=== PATIENT | male | born 1950 | race Caucasian/White ===

== ENCOUNTER → 2020-09-17 15:34 | Outpatient (BNVA) | payer MEDICARE, OTHER, MEDICAID, SELFPAY | PROVIDERS: Visit Provider Internal Medicine | DX: R06.02 Shortness of breath (principal); E78.5 Hyperlipidemia, unspecified | CPT/HCPCS: 80048; 80061; 85025 ==

== ENCOUNTER 2020-10-08 09:35 | Outpatient (CLI) | payer MEDICARE, OTHER, MEDICAID, SELFPAY ==
--- NOTE | 2020-10-08 12:45 | USCV_ITS ---
Charlie Moulton Age: 70 Gender: M : 1950 Exam Date: 10/08/2020 09:38 Ordering Phys: Gentry Renner M.D ([email or web address]) Technologist: Joselito Watkins Exam Location: [facility] [place] Indication: SOB BP: 140 / 80 HR: 56 Rhythm: Sinus Technical Quality: Adequate MEASUREMENTS (Male / Female) Normal Values 2D ECHO LV Diastolic Diameter PLAX 3.8 cm 4.2 - 5.9 / 3.9 - 5.3 cm LV Systolic Diameter PLAX 2.6 cm IVS Diastolic Thickness 1.6 cm 0.6 - 1.0 / 0.6 - 0.9 cm IVS Systolic Thickness 1.4 cm LVPW Diastolic Thickness 1.2 cm 0.6 - 1.0 / 0.6 - 0.9 cm LVPW Systolic Thickness 1.3 cm LVOT Diameter 3.8 cm LV Ejection Fraction 2D Teich 60.9 % LV Ejection Fraction MOD 2C 51.1 % LV Ejection Fraction 2C AL 51.7 % LA Diameter 3.5 cm LA Width 3.8 cm LA Height 4.5 cm RA Width 4.3 cm RA Height 4.2 cm Aorta at Sinotubular Diameter 3.4 cm M-MODE Aortic Annulus Diameter 4.1 cm LA Ao Ratio MM 0.8 MV E Point Septal Separation 0.9 cm DOPPLER AV Peak Velocity 114.0 cm/s LVOT Peak Velocity 89.0 cm/s AV Area Cont Eq vti 12.1 cm squared AV Area Cont Eq pk 8.6 cm squared MV Area PHT 4.0 cm squared Mitral E to A Ratio 1.4 MV E' Velocity 50.0 cm/s Mitral E to MV E' Ratio 10.0 Mitral E to LV E' Lateral Ratio 8.8 Mitral E to LV E' Septal Ratio 11.7 TR Peak Velocity 137.7 cm/s TR Peak Gradient 7.6 mmHg TV Peak E Velocity 94.0 cm/s Right Atrial Pressure 3.0 mmHg Pulmonary Artery Systolic Pressu 10.6 mmHg PV Peak Velocity 101.0 cm/s FINDINGS Left Ventricle Normal left ventricular size and systolic function, EF 55%. No regional wall motion abnormalities. Right Ventricle The right ventricle is normal in size and function. Right Atrium The right atrium is normal in size. Left Atrium The left atrium is normal in size. Mitral Valve Thickened mitral valve. Mild mitral annular calcification. Trace mitral valve regurgitation. Aortic Valve Thickened aortic valve. Tricuspid Valve No gross abnormalities noted Pulmonic Valve No pulmonic regurgitation. Pericardium Normal pericardium without effusion. Aorta Normal aortic annulus size. CONCLUSIONS Normal left ventricular size and systolic function, EF 55%. No regional wall motion abnormalities. Thickened mitral valve. Mild mitral annular calcification. Trace mitral valve regurgitation. Thickened aortic valve. Thickened mitral valve. Mild mitral annular calcification. Trace mitral valve regurgitation. There is no pericardial effusion. There are no intracardiac masses. Compared to the previous study from 09/10/2017, there may not be a significant Dr Karthik Palafox MD FACC (Electronically Signed) Final Date: 08 October 2020 17:40 S
== END 2020-10-08 09:36 | disposition home or self-care (01) ==
LOC: RAD 09:41
PROVIDERS: Visit Provider Internal Medicine
DX: R06.02 Shortness of breath (principal); I08.0 Rheumatic disorders of both mitral and aortic valves
CPT/HCPCS: 93306

== ENCOUNTER 2021-03-01 16:16 | Observation (INO) | payer MEDICARE, OTHER, MEDICAID, SELFPAY ==
[2021-03-01] VITALS (8 sets, daily range): BP systolic 109–131; BP diastolic 75–83; PULSE 73–92; RESP 17–29; TEMP 36.5–36.8; O2SAT 93–97; BMI 28.5
--- NOTE | 2021-03-01 16:19 | XRR_ITS ---
PROCEDURE INFORMATION: Exam: XR Chest Exam date and time: 03/01/2021 4:19 PM Age: 71 years old Clinical indication: Chest pain; Prior surgery; Surgery type: Hernia; Patient HX: Acid reflux, bloating, vomiting, heartburn every day; Additional info: Cp, gonzalez TECHNIQUE: Imaging protocol: XR of the chest Views: 1 view. COMPARISON: CR Chest 1 [place] [id number] 05/17/2017 6:34 AM FINDINGS: Lungs: Unremarkable. No consolidation. Pleural spaces: Unremarkable. No pleural effusion. No pneumothorax. Heart/Mediastinum: Unremarkable. No cardiomegaly. Bones/joints: Metallic hardware is seen in the cervical spine stable since prior XR/XR chest 1V portable [id number] IMPRESSION: 1. No acute findings. 2. Stable surgical hardware cervical spine.
--- NOTE | 2021-03-01 16:19 | ECG_ITS ---
[facility] Test Date: 2021-03-01 Pat Name: Charlie Moulton Department: Room: Gender: Male Spreader: : 1950 Requested By: Esly Delgado Order Number: [id number] Edgardo MD: Gentry Renner M.D. Measurements Intervals [place] Rate: 67 P: 69 ND: 192 QRS: 67 QRSD: 97 T: 74 QT: 369 QTc: 391 Interpretive Statements SINUS RHYTHM WITH MARKED SINUS ARRHYTHMIA Compared to ECG 05/17/2017 09:44:21 Incomplete right bundle-branch block no longer present T-wave abnormality no longer present Electronically Signed On 03-01-2021 18:29:59 CDT by Gentry Renner M.D. [id number]
--- NOTE | 2021-03-01 17:51 | ED_ITS ---
Documented by User: Sierra Head DO 03/02/21 06:45 HPI - Arrhythmia/Palpitations General: Chief Complaint: Arrhythmia/Palpitations Stated Complaint: NEW ONSET AFIB W/CP AND SOB Time Seen by Provider: 03/01/21 16:23 History of Present Illness: HPI narrative: This is a 71-year-old male who is complaining of some chest discomfort while he was doing some work around the house's in the center of his chest he denies it radiating but he had some shortness of breath associated with it he said it was pretty significant but will not put a number on it. He actually went in the house and sat down and felt very sweaty. He called his who came home who said she thought he looked pretty rough patient had taken some nitro that he had from some time ago Pt had ASA prior to arrival Review of Systems General: Reports: 10 or more systems reviewed and unremarkable except in HPI and below Narrative: General: denies fatigue, fever or chills HEENT: denies ear pain, denies nasal congestion, denies vision changes, denies sore throat Neck: denies masses or pain Resp: denies cough, ++ shortness of breath, denies pleuritic pain Cardio: see HPI, denies edema GI: denies abdominal pain, denies N/V/D, denies black/tarry or bloody stools : denies hematuria, denies dysuria Neuro: denies headache, denies dizziness, denies motor or sensory changes Musculoskeletal: denies pain, denies swelling Skin: denies rashes Psych: denies SI or HI Endocrine: denies thyroid symptoms, denies lymphadenopathy all over ROS reviewed and patient denies PFSH ED PFSH: Medical History (Updated 03/01/21 @ 20:51 by Jennifer Luther MD) Arthritis Neuropathy Surgical History H/O neck surgery History of hip surgery Previous back surgery Social History Smoking and tobacco status: current every day smoker Quit status (tobacco): has tried quititng Second hand smoke exposure: No Smoking risk assessment/counseling performed?: No Alcohol intake: former Desire information about alcohol rehabilitation?: No Counseling given: No Desire information about substance/drug rehabilitation?: No Counseling given: No Household members: spouse Housing: House Marital status: Highest education level completed: High School Graduate service: No Current occupational status: unemployed Pets and animals: Yes Physical Exam Narrative: EXAM NARRATIVE: General: a/o/3, no distress Head: atraumatic HEENT: normal eyes, normal conjunctiva, normal hearing, normal external nose, normal mouth, mucous membranes moist Neck: FROM, trachea midline Chest: normal expansion, no gross deformities Resp: normal speech, no retractions, no accessory muscle use, CTA bilaterally Cardio: regular rate and rhythm and no murmur, no peripheral edema, normal peripheral pulses GI: soft, flat non tender, no guarding normal BS : deferred Musculoskeletal: FROM, no pain or gross deformities Neuro: a/o appropriate for age, no gross motor or sensory deficitys, CN II-XII grossly intact, normal coordination, normal speech Skin: no rashes Psych: cooperative, normal mood and effect Course Vital Signs: Vital signs: Vital Signs Temperature 97.9 F 03/02/21 03:59 Pulse Rate 70 03/02/21 03:59 Respiratory Rate 17 03/02/21 03:59 Blood Pressure 117/69 03/02/21 03:59 Pulse Oximetry 91 03/02/21 03:59 MDM - Arrhythmia/Palpitations MDM Narrative: Medical decision making narrative: Reviewed patient's rhythm strips from EMS it appears he was in A. fib RVR but then converted spontaneously in route to the hospital he had aspirin prior to arrival he also had 1 nitro at home that he had on hand he is not sure if that helped or not but regardless if he converted or the nitro something made his pain resolved. Patient is a very suspicious story he had exertional chest pain diaphoresis pale when his arrived potentially relief with nitro this is his second or third complaint of this to medical staff in the past 6 months I feel patient needs cardiac evaluation [place] feel [place] him home Medical Records: Attestation: I reviewed the patient's medical records. Lab Data: Attestation: I reviewed the patient's lab results. Lab results narrative: Patient is pain-free in the emergency department I feel a story suspicious I reviewed his previous records patient's care was signed over to Dr. Prasad who will follow up on his chemistries his troponin and potential admission Labs: Lab Results 03/01/21 03/01/21 03/01/21 Range/Units 17:21 17:21 17:21 WBC 12.8 H (4.0-10.0) 10^3/ uL RBC 5.13 (4.1-5.3) 10^6/u L Hgb 15.8 (11.7-16.6) g/dL Hct 46.2 (42.0-52.0) % MCV 90.1 (80-94) fL MCH 30.8 (28.0-34.0) pg MCHC 34.2 (30.0-36.0) g/dL RDW 12.6 (12.1-15.1) % Plt Count 168 (130-400) 10^3/c mm MPV 9.9 (7.4-10.4) fL Neut % (Auto) 81.0 % Lymph % (Auto) 10.3 % [place] % (Auto) 7.7 % Eos % (Auto) 0.2 % Baso % (Auto) 0.3 % Neut # (Auto) 10.39 H (1.8-7.7) 10^3/u L Lymph # (Auto) 1.3 (0.8-4.8) 10^3/u L [place] # (Auto) 1.0 H (0.2-0.9) 10^3/u L Eos # (Auto) 0.0 (0.0-0.8) 10^3/u L Baso # (Auto) 0.0 (0.0-0.1) 10^3/u L Nucleated RBC % (a uto) 0 % Nucleated RBCs # 0.0 /100WBC D-Dimer (0-0.59) ug/mIFE U Sodium 141 (136-145) mmol/L Potassium 3.9 (3.5-5.1) mmol/L Chloride 104 (98-107) mmol/L Carbon Dioxide 22 (22-29) mmol/L Anion Gap 18.9 (5-19) BUN 23 (8-23) mg/dL Creatinine 1.0 (0.7-1.2) mg/dL GFR Calculation 74.1 L (90-130) mL/min Glucose 86 (65-115) mg/dL Calculated Osmolal ity 295 (285-295) mOsm/k g Calcium 9.8 (8.5-10.5) mg/dL Magnesium (1.7-2.3) mg/dL Total Bilirubin 0.5 (0.15-1.2) mg/dL AST 19 (0-40) U/L ALT 6 (0-41) U/L Alkaline Phosphata se 91 (40-130) IU/L Troponin T Baselin e 28 H (0-15) ng/L Total Protein 6.5 L (6.6-8.7) g/dL Albumin 4.9 (3.5-5.2) g/dL Globulin 1.6 (1.3-4.6) g/dL TSH (0.27-4.20) uIU/ mL 03/01/21 03/01/21 Range/Units 17:21 17:21 WBC (4.0-10.0) 10^3/ uL RBC (4.1-5.3) 10^6/u L Hgb (11.7-16.6) g/dL Hct (42.0-52.0) % MCV (80-94) fL MCH (28.0-34.0) pg MCHC (30.0-36.0) g/dL RDW (12.1-15.1) % Plt Count (130-400) 10^3/c mm MPV (7.4-10.4) fL Neut % (Auto) % Lymph % (Auto) % [place] % (Auto) % Eos % (Auto) % Baso % (Auto) % Neut # (Auto) (1.8-7.7) 10^3/u L Lymph # (Auto) (0.8-4.8) 10^3/u L [place] # (Auto) (0.2-0.9) 10^3/u L Eos # (Auto) (0.0-0.8) 10^3/u L Baso # (Auto) (0.0-0.1) 10^3/u L Nucleated RBC % (a uto) % Nucleated RBCs # /100WBC D-Dimer 0.43 (0-0.59) ug/mIFE U Sodium (136-145) mmol/L Potassium (3.5-5.1) mmol/L Chloride (98-107) mmol/L Carbon Dioxide (22-29) mmol/L Anion Gap (5-19) BUN (8-23) mg/dL Creatinine (0.7-1.2) mg/dL GFR Calculation (90-130) mL/min Glucose (65-115) mg/dL Calculated Osmolal ity (285-295) mOsm/k g Calcium (8.5-10.5) mg/dL Magnesium 2.1 (1.7-2.3) mg/dL Total Bilirubin (0.15-1.2) mg/dL AST (0-40) U/L ALT (0-41) U/L Alkaline Phosphata se (40-130) IU/L Troponin T Baselin e (0-15) ng/L Total Protein (6.6-8.7) g/dL Albumin (3.5-5.2) g/dL Globulin (1.3-4.6) g/dL TSH 0.84 (0.27-4.20) uIU/ mL EKG Data^: EKG 1: Attestation: I personally reviewed and interpreted this EKG as follows: EKG interpretation date: 03/01/21 EKG interpretation time: 18:21 Interpretation: nsr rate 67, No acute st changes or evaluation patient's rhythm strips were also interpreted from EMS and it does show A. fib RVR with a rate of about 1 18-1 20 Other EKG comments: Chest X-Ray 03/01/21 16:19 IMPRESSION: 1. No acute findings. 2. Stable surgical hardware cervical spine. EKG 2: Other EKG comments: Chest X-Ray 03/01/21 16:19 IMPRESSION: 1. No acute findings. 2. Stable surgical hardware cervical spine. 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 Documented by User: Contreras Perkins MD 03/01/21 19:46 HPI - Arrhythmia/Palpitations General: Chief Complaint: Arrhythmia/Palpitations Stated Complaint: NEW ONSET AFIB W/CP AND SOB Time Seen by Provider: 03/01/21 16:23 PFSH ED PFSH: Medical History (Updated 03/01/21 @ 20:51 by Jennifer Luther MD) Arthritis Neuropathy Surgical History H/O neck surgery History of hip surgery Previous back surgery Social History Smoking and tobacco status: current every day smoker Quit status (tobacco): has tried quititng Second hand smoke exposure: No Smoking risk assessment/counseling performed?: No Alcohol intake: former Desire information about alcohol rehabilitation?: No Counseling given: No Desire information about substance/drug rehabilitation?: No Counseling given: No Household members: spouse Housing: House Marital status: Highest education level completed: High School Graduate service: No Current occupational status: unemployed Pets and animals: Yes Course Vital Signs: Vital signs: Vital Signs Temperature 97.9 F 03/02/21 03:59 Pulse Rate 70 03/02/21 03:59 Respiratory Rate 17 03/02/21 03:59 Blood Pressure 117/69 03/02/21 03:59 Pulse Oximetry 91 03/02/21 03:59 MDM - Arrhythmia/Palpitations MDM Narrative: Medical decision making narrative: Patient presents with an episode of chest pain at home could be due to paroxysmal A. fib versus coronary artery disease. First troponin mildly elevated. He has converted his A. fib here. Spoke to hospitalist will admit. Has been pain-free here in the ER. Lab Data: Labs: Lab Results 03/01/21 03/01/21 03/01/21 Range/Units 17:21 17:21 17:21 WBC 12.8 H (4.0-10.0) 10^3/ uL RBC 5.13 (4.1-5.3) 10^6/u L Hgb 15.8 (11.7-16.6) g/dL Hct 46.2 (42.0-52.0) % MCV 90.1 (80-94) fL MCH 30.8 (28.0-34.0) pg MCHC 34.2 (30.0-36.0) g/dL RDW 12.6 (12.1-15.1) % Plt Count 168 (130-400) 10^3/c mm MPV 9.9 (7.4-10.4) fL Neut % (Auto) 81.0 % Lymph % (Auto) 10.3 % [place] % (Auto) 7.7 % Eos % (Auto) 0.2 % Baso % (Auto) 0.3 % Neut # (Auto) 10.39 H (1.8-7.7) 10^3/u L Lymph # (Auto) 1.3 (0.8-4.8) 10^3/u L [place] # (Auto) 1.0 H (0.2-0.9) 10^3/u L Eos # (Auto) 0.0 (0.0-0.8) 10^3/u L Baso # (Auto) 0.0 (0.0-0.1) 10^3/u L Nucleated RBC % (a uto) 0 % Nucleated RBCs # 0.0 /100WBC D-Dimer (0-0.59) ug/mIFE U Sodium 141 (136-145) mmol/L Potassium 3.9 (3.5-5.1) mmol/L Chloride 104 (98-107) mmol/L Carbon Dioxide 22 (22-29) mmol/L Anion Gap 18.9 (5-19) BUN 23 (8-23) mg/dL Creatinine 1.0 (0.7-1.2) mg/dL GFR Calculation 74.1 L (90-130) mL/min Glucose 86 (65-115) mg/dL Calculated Osmolal ity 295 (285-295) mOsm/k g Calcium 9.8 (8.5-10.5) mg/dL Magnesium (1.7-2.3) mg/dL Total Bilirubin 0.5 (0.15-1.2) mg/dL AST 19 (0-40) U/L ALT 6 (0-41) U/L Alkaline Phosphata se 91 (40-130) IU/L Troponin T Baselin e 28 H (0-15) ng/L Total Protein 6.5 L (6.6-8.7) g/dL Albumin 4.9 (3.5-5.2) g/dL Globulin 1.6 (1.3-4.6) g/dL TSH (0.27-4.20) uIU/ mL 03/01/21 03/01/21 Range/Units 17:21 17:21 WBC (4.0-10.0) 10^3/ uL RBC (4.1-5.3) 10^6/u L Hgb (11.7-16.6) g/dL Hct (42.0-52.0) % MCV (80-94) fL MCH (28.0-34.0) pg MCHC (30.0-36.0) g/dL RDW (12.1-15.1) % Plt Count (130-400) 10^3/c mm MPV (7.4-10.4) fL Neut % (Auto) % Lymph % (Auto) % [place] % (Auto) % Eos % (Auto) % Baso % (Auto) % Neut # (Auto) (1.8-7.7) 10^3/u L Lymph # (Auto) (0.8-4.8) 10^3/u L [place] # (Auto) (0.2-0.9) 10^3/u L Eos # (Auto) (0.0-0.8) 10^3/u L Baso # (Auto) (0.0-0.1) 10^3/u L Nucleated RBC % (a uto) % Nucleated RBCs # /100WBC D-Dimer 0.43 (0-0.59) ug/mIFE U Sodium (136-145) mmol/L Potassium (3.5-5.1) mmol/L Chloride (98-107) mmol/L Carbon Dioxide (22-29) mmol/L Anion Gap (5-19) BUN (8-23) mg/dL Creatinine (0.7-1.2) mg/dL GFR Calculation (90-130) mL/min Glucose (65-115) mg/dL Calculated Osmolal ity (285-295) mOsm/k g Calcium (8.5-10.5) mg/dL Magnesium 2.1 (1.7-2.3) mg/dL Total Bilirubin (0.15-1.2) mg/dL AST (0-40) U/L ALT (0-41) U/L Alkaline Phosphata se (40-130) IU/L Troponin T Baselin e (0-15) ng/L Total Protein (6.6-8.7) g/dL Albumin (3.5-5.2) g/dL Globulin (1.3-4.6) g/dL TSH 0.84 (0.27-4.20) uIU/ mL EKG Data^: EKG 1: Other EKG comments: Chest X-Ray 03/01/21 16:19 IMPRESSION: 1. No acute findings. 2. Stable surgical hardware cervical spine. EKG 2: Attestation: I personally reviewed and interpreted this EKG as follows: EKG interpretation date: 03/01/21 EKG interpretation time: 18:39 Interpretation: nsr hr [address] or t wave eanbormalities qrs 93 qtc 397 Other EKG comments: Chest X-Ray 03/01/21 16:19 IMPRESSION: 1. No acute findings. 2. Stable surgical hardware cervical spine. 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
[2021-03-01 17:54] LABS: Basophils % 0.3 %; Eosinophils % 0.2 %; Hematocrit 46.2 % (42.0-52.0); Hemoglobin 15.8 g/dL (11.7-16.6); Lymphocytes # 1.3 10^3/uL (0.8-4.8); Lymphocytes % 10.3 %; Mean Corpuscular HGB Conc 34.2 g/dL (30.0-36.0); Mean Corpuscular Hemoglobin 30.8 pg (28.0-34.0); Mean Corpuscular Volume 90.1 fL (80-94); Mean Platelet Volume 9.9 fL (7.4-10.4); Monocytes % 7.7 %; Neutrophils # 10.39 10^3/uL (1.8-7.7); Nucleated Red Blood Cells % 0 %; Platelet Count 168 10^3/cmm (130-400); Red Blood Count 5.13 10^6/uL (4.1-5.3); Red Cell Distribution Width 12.6 % (12.1-15.1); White Blood Count 12.8 10^3/uL (4.0-10.0)
--- NOTE | 2021-03-01 18:19 | ECG_ITS ---
[facility] Test Date: 2021-03-01 Pat Name: Charlie Moulton Department: Room: Gender: Male Abe Teacher: : 1950 Requested By: Elsy Delgado Order Number: [id number] Edgardo MD: Gentry Renner M.D. Measurements Intervals [place] Rate: 64 P: 76 [place]: 194 QRS: 64 QRSD: 93 T: 69 QT: 388 QTc: 401 Interpretive Statements SINUS RHYTHM WITH SINUS ARRHYTHMIA Compared to ECG 03/01/2021 16:29:22 No significant changes Electronically Signed On 03-01-2021 18:43:04 CDT by Gentry Renner M.D. [id number]
[2021-03-01 18:36] LABS: Alanine Aminotransferase 6 U/L (0-41); Albumin Level 4.9 g/dL (3.5-5.2); Alkaline Phosphatase 91 IU/L (40-130); Anion Gap 18.9 (5-19); Aspartate Amino Transferase 19 U/L (0-40); Blood Urea Nitrogen 23 mg/dL (8-23); Calcium 9.8 mg/dL (8.5-10.5); Carbon Dioxide 22 mmol/L (22-29); Chloride 104 mmol/L (98-107); Globulin 1.6 g/dL (1.3-4.6); Glomerular Filtration Rate 74.1 mL/min (90-130); Glucose 86 mg/dL (65-115); Osmolality Calculated 295 mOsm/kg (285-295); Potassium 3.9 mmol/L (3.5-5.1); Sodium 141 mmol/L (136-145); Total Bilirubin 0.5 mg/dL (0.15-1.2); Total Protein 6.5 g/dL (6.6-8.7)
[2021-03-01 18:39] LABS: Troponin(5th) Baseline 28 ng/L (0-15)
--- NOTE | 2021-03-01 19:32 | P.HP_ITS ---
Providers/Chief Complaint Admitting Physician: Jennifer Luther MD Chief Complaint: NEW ONSET AFIB W/CP AND SOB History of Present Illness Charlie Moulton is a 71 year old male who does not have any significant past medical history presented today with chief complaint of right-sided chest discomfort. Patient was doing some work in his house when he started experiencing right-sided chest discomfort, the nature of his work involves uziel ping his arm above his shoulder level, he started experiencing right-sided chest discomfort around 2 PM which he is describing as achy, it lasted for about an hour, initially he attributed his symptoms to acid reflux but since morning he did not eat any food, after a while he broke into sweat and started experiencing shortness of breath, he called his who came from work and gave him sublingual nitroglycerin, it seemed to resolve his symptoms, he also felt weakness in his legs and he laid on the ground he did not experience any syncopal events or seizure-like activities. Is denying previous history of HI, CHF, diabetes, hypertension. He smokes half a pack a day for last 50 years. He considers himself very active for his age. EMS noticed A. fib RVR heart rate 120s which converted to sinus rhythm spontaneously, he received a loading dose of aspirin, by the time he was evaluated in the ER he was in sinus rhythm with normal hemodynamics troponin 2 8, EKG showing sinus rhythm, previous echo which was done on 10/19 did not show left atrial argument, preserved ejection fraction. Requested D-dimer which is unremarkable Review of Systems Const: Denies: fever(s) Eyes: Denies: change in vision ENMT: Denies: throat pain Card: Reports: chest pain and pre-syncope; Denies: syncope, dyspnea on exertion or orthopnea Resp: Reports: dyspnea and pain on inspiration; Denies: productive cough or non-productive cough GI: Denies: abdominal pain : Denies: flank pain Musc: Denies: neck pain Skin/Breast: Denies: rash Neuro: Denies: headache(s) Psych: Denies: anxiety Endo: Denies: polyuria Miguelito/Lymph: Denies: easy bruising All/Imm: Denies: urticaria Medications/Allergies Home Medications Medication Instructions Recorded Confirmed Last Taken Type Equate Nasal Congestion Mist 2 spray NOSTRIL-B BEDTIME 03/01/21 03/01/2102/28/21 History Ventolin HFA 2 inh INHALATION QID PRN 03/01/21 03/01/21 Unknown History fluticasone propionate [Flonase] 1 - 2 spray INTRANASAL DAILY PRN 03/01/21 03/01/21 Unknown History gabapentin 300 mg PO BID PRN 03/01/21 03/01/21 Unknown History naproxen 500 mg PO DAILY 03/01/21 03/01/21 02/28/21 History prednisolone acetate 1 drp OPHTHALMIC (EYE) BID 03/01/21 03/01/21 03/01/21 History tadalafil 20 mg PO PRN 03/01/21 03/01/21 Unknown History vit C,G-Px-fluse-lutein-zeaxan 1 cap PO QPM 03/01/21 03/01/21 02/28/21 History [PreserVision AREDS-2] Allergies Allergy/AdvReac Type Severity Reaction Status Date / Time No Known Allergies Allergy Verified 03/01/21 16:52 PFSH Acute PFSH: Medical History Neuropathy Surgical History H/O neck surgery History of hip surgery Previous back surgery Social History Smoking and tobacco status: current every day smoker Quit status (tobacco): has tried quititng Second hand smoke exposure: No Smoking risk assessment/counseling performed?: No Alcohol intake: former Desire information about alcohol rehabilitation?: No Counseling given: No Desire information about substance/drug rehabilitation?: No Counseling given: No Household members: spouse Housing: House Marital status: Highest education level completed: High School Graduate service: No Current occupational status: unemployed Pets and animals: Yes Vitals/I&O/Wt Last Vital Signs Temp 97.7 F 03/01/21 16:24 Pulse 92 03/01/21 17:24 Resp 18 03/01/21 17:24 BP 109/75 03/01/21 17:24 Pulse Ox 97 03/01/21 17:24 Weight last 48 hrs Weight 95.254 kg Physical Exam Narrative: EXAM NARRATIVE: elderly male who was sitting comfortably in his bed when I entered the room was saturating well on room air Very pleasant and cooperative S1, S2 no murmur appreciated, No signs of heart failure Bilateral breath sounds without adventitious rhonchi or crackles however diminished breath sounds Abdomen soft nontender No neurological deficit EOMI, PERRLA GCS 15 No lower extremity edema gangrene or ulcer No acute respiratory distress Data : 03/01/21 17:21 03/01/21 17:21 A&P Assessment and plan (1) Unstable angina: Status: Acute (2) Tobacco abuse: Status: Acute (3) Paroxysmal A-fib: Status: Acute Additional A&P Information Unstable angina Patient risk factors include smoking, age, sex He does not carry any diagnosis of hypertension diabetes HI CHF EMS strip showed A. 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 fib Spontaneous converted to normal sinus rhythm [id number] score 1 for his age no carry history of diabetes hypertension congestive heart failure Currently in sinus rhythm I would not add any anticoagulating agent or AV jose blocking agent for now, he never had this kind of symptoms before would recommend outpatient follow-up with cardiology, he is not septic less likely to have PE because of low D-dimer, no ACS, no history of hypertension, chest x-ray does show emphysematous changes Cardiac diet DVT prophylaxis Lovenox Full code Attestations Medical Necessity Statement*: Anticipating discharge in less than 48 hours: Angina equivalent chest discomfort, paroxysmal A. fib, need overnight telemetry monitoring Time Spent in Patient Care: (>than 50% of time spent in counselling and/or direct pt care on unit) . 40mins Coding Level of Care Code Acute Attendant Self Service Store for Chg Fwd Diagnoses Unstable angina I20.0 Tobacco abuse Z72.0 Paroxysmal A-fib I48.0
[2021-03-01] MEDS: aspirin 81 mg Chew Tablet 324 MG PO (19:39)
[2021-03-01 19:45] LABS: Lactate (Lactic Acid level) 1.1 mmol/L (0.5-2.2)
--- NOTE | 2021-03-01 19:50 | PC.NURSE ---
Attempted to call report to CSU and no answer at this time.
[2021-03-01 19:53] LABS: D Dimer 0.43 ug/mIFEU (0-0.59)
[2021-03-01 19:58] LABS: Magnesium 2.1 mg/dL (1.7-2.3); Thyroid Stimulating Hormone 0.84 uIU/mL (0.27-4.20)
[2021-03-01] MEDS: enoxaparin 40 mg/0.4 mL Syringe SUBCUT (22:24)
--- NOTE | 2021-03-01 22:26 | PC.NURSE ---
Lovenox injection given late, due to care of other patients.
[2021-03-02] VITALS (7 sets, daily range): BP systolic 93–128; BP diastolic 57–74; PULSE 66–76; RESP 14–20; TEMP 36.4–36.9; O2SAT 91–96
[2021-03-02 00:30] LABS: Troponin 5 6HR 27.48 ng/L (0-15)
[2021-03-02 00:46] LABS: Troponin 5 6HR Delta -0.52 ng/L (0-12)
[2021-03-02 04:04] LABS: Basophils % 0.6 %; Eosinophils # 0.1 10^3/uL (0.0-0.8); Hematocrit 43.2 % (42.0-52.0); Hemoglobin 14.4 g/dL (11.7-16.6); Lymphocytes % 29.5 %; Mean Corpuscular HGB Conc 33.3 g/dL (30.0-36.0); Mean Corpuscular Hemoglobin 30.6 pg (28.0-34.0); Mean Corpuscular Volume 91.9 fL (80-94); Mean Platelet Volume 9.9 fL (7.4-10.4); Monocytes # 0.6 10^3/uL (0.2-0.9); Monocytes % 9.5 %; Neutrophils # 3.89 10^3/uL (1.8-7.7); Neutrophils % 58.4 %; Nucleated Red Blood Cells % 0 %; Platelet Count 156 10^3/cmm (130-400); Red Cell Distribution Width 12.9 % (12.1-15.1); White Blood Count 6.7 10^3/uL (4.0-10.0)
--- NOTE | 2021-03-02 10:14 | USCV_ITS ---
Charlie Moulton Age: 71 Gender: M : 1950 Exam Date: 03/02/2021 11:23 Ordering Phys: Marvin Owens MD Technologist: Adriane Shrestha Exam Location: [facility] – [place] Indication: chest pain BP: 128 / 73 HR: 58 Rhythm: Sinus Technical Quality: Adequate MEASUREMENTS (Male / Female) Normal Values 2D ECHO LV Diastolic Diameter PLAX 3.4 cm 4.2 - 5.9 / 3.9 - 5.3 cm LV Systolic Diameter PLAX 2.2 cm IVS Diastolic Thickness 1.8 cm 0.6 - 1.0 / 0.6 - 0.9 cm IVS Systolic Thickness 2.0 cm LVPW Diastolic Thickness 1.6 cm 0.6 - 1.0 / 0.6 - 0.9 cm LVPW Systolic Thickness 2.0 cm RV Chamber Size 2.6 cm LVOT Diameter 2.0 cm LV Ejection Fraction 2D Teich 65.5 % LV Ejection Fraction MOD 2C 63.5 % LV Ejection Fraction 2C AL 65.9 % LA Diameter 3.3 cm LA Width 3.5 cm LA Height 3.6 cm RA Width 3.0 cm RA Height 3.8 cm Aorta at Sinotubular Diameter 2.9 cm M-MODE LV Diastolic Diameter MM 6.1 cm 4.2 - 5.9 / 3.9 - 5.3 cm LV Systolic Diameter MM 3.9 cm LV Ejection Fraction MM Teich 64.6 % IVS Diastolic Thickness MM 1.5 cm 0.6 - 1.0 / 0.6 - 0.9 cm IVS Systolic Thickness MM 1.9 cm LVPW Diastolic Thickness MM 1.9 cm 0.6 - 1.0 / 0.6 - 0.9 cm LVPW Systolic Thickness MM 2.2 cm Aortic Annulus Diameter 3.4 cm LA Ao Ratio MM 1.1 MV E Point Septal Separation 0.8 cm DOPPLER AV Peak Velocity 120.0 cm/s LVOT Peak Velocity 90.0 cm/s AV Area Cont Eq vti 2.4 cm squared AV Area Cont Eq pk 2.5 cm squared MV Area PHT 5.0 cm squared Mitral E to A Ratio 1.0 MV E' Velocity 43.5 cm/s Mitral E to MV E' Ratio 9.8 Mitral E to LV E' Lateral Ratio 9.9 Mitral E to LV E' Septal Ratio 9.7 TR Peak Velocity 218.0 cm/s TR Peak Gradient 19.0 mmHg Right Atrial Pressure 3.0 mmHg Pulmonary Artery Systolic Pressu 22.0 mmHg PV Peak Velocity 96.0 cm/s RV Acceleration Time 0.1 s RV Ejection Time 0.3 s RV AcT/ET 0.4 FINDINGS Left Ventricle Normal left ventricular size and systolic function, EF 64 %. Moderate left ventricular hypertrophy. No regional wall motion abnormalities. Right Ventricle The right ventricle is normal in size and function. Right Atrium The right atrium is normal in size. Left Atrium The left atrium is normal in size. Mitral Valve Thickened mitral valve. Mild mitral annular calcification. Trace mitral valve regurgitation. Aortic Valve Thickened aortic valve. Tricuspid Valve No gross abnormalities noted Pulmonic Valve No gross abnormalities noted Pericardium Normal pericardium without effusion. Aorta Normal ascending aorta dimension. CONCLUSIONS Normal left ventricular size and systolic function, EF 64 %. Moderate left ventricular hypertrophy. No regional wall motion abnormalities. Thickened mitral valve. Mild mitral annular calcification. Trace mitral valve regurgitation. Thickened aortic valve. There is no pericardial effusion. There are no intracardiac masses. Compared to the study from 10/08/2020, there may not be a significant change Dr Karthik Palafox MD [facility] (Electronically Signed) Final Date: 02 March 2021 13:36 S
[2021-03-02] MEDS: prednisoLONE 1% Op Susp 5 mL Btl 1 DROP EYE-LEFT (13:48)
--- NOTE | 2021-03-02 13:54 | P.DS_ITS ---
Discharge Providers Date of Admission: 03/01/21 19:08 Date of Discharge: March 02, 2021 Attending Provider at Admission: Jennifer Luther MD Attending Provider at Discharge: Marvin Owens MD Diagnoses at Discharge Discharge Diagnosis (1) Chest pain: Status: Acute (2) Tobacco abuse: Status: Acute Reason for Visit Reason for Visit: NEW ONSET AFIB W/CP AND SOB Hospital Course Hospital Course 71 year old male with past medical history of chronic smoking, was admitted with chief complaint of right-sided chest discomfort. Patient was doing some work in his house when he started experiencing right-sided chest discomfort, the nature of his work involves keeping his arm above his shoulder level, he started experiencing right-sided chest discomfort around 2 PM which he is describing as achy, it lasted for about an hour, initially he attributed his symptoms to acid reflux but since morning he did not eat any food, after a while he broke into sweat and started experiencing shortness of breath, he called his who came from work and gave him sublingual nitroglycerin, it seemed to resolve his symptoms, he also felt weakness in his legs and he laid on the ground he did not experience any syncopal events or seizure-like activities. On his way to the hospital EMS noticed A. fib RVR heart rate 120s which converted to sinus rhythm spontaneously, he received a loading dose of aspirin, by the time he was evaluated in the ER he was in sinus rhythm with normal hemodynamics troponin EKG showing sinus rhythm, previous echo which was done on 10/19 did not show left atrial argument, preserved ejection fraction. D-dimer which is unremarkable. He was admitted for the management and work-up of chest. During the hospital stay he denied any similar episode, telemetry failed to show any abnormality, he remained in sinus during the hospital, no episode of A. fib was noted. Repeat 2D echo done: Normal left ventricular size and systolic function, EF 64 %. Moderate left ventricular hypertrophy.No regional wall motion abnormalities. Thickened mitral valve. Mild mitral annular calcification. Trace mitral valve regurgitation. Thickened aortic valve.Patient was advised to stay in the hospital for further work-up including and not limited to possible stress test.But patient was willing to go home. 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 Possible explanation no chest pain likely musculoskeletal versus possible underlying coronary artery disease. Physical Exam Const: COMMON NORMALS: patient oriented x3 HENMT: COMMON NORMALS: normocephalic and atraumatic HEAD & SCALP: normocephalic and atraumatic Chest: CHEST: Yes Symmetrical chest wall rise Resp: COMMON NORMALS: clear to auscultation bilaterally EFFORT & INSPECTION: Yes symmetric chest movement AUSCULTATION: clear to auscultation bilaterally Cardio: COMMON NORMALS: regular rate, regular rhythm, S1 normal heart sound present, S2 normal heart sound present, No gallops present (Cardio), No murmurs present (Cardio), No rub (Cardio) and Peripheral pulses 2+ throughout RATE: regular rate RHYTHM: regular rhythm HEART SOUNDS: S1 normal heart sound present and S2 normal heart sound present PERIPHERAL PULSES: Peripheral pulses 2+ throughout GI: COMMON NORMALS: Normal to inspection, nondistended, normoactive bowel sounds present, Soft to palpation, non-tender, No hepatosplenomegaly present and no masses AUSCULTATION: Yes normoactive bowel sounds PALPATION: Yes Soft to palpation and Yes No hepatosplenomegaly present RECTAL EXAM: Yes deferred Extremity: COMMON NORMALS: no clubbing, cyanosis or edema and no pedal edema Neuro: COMMON NORMALS: patient oriented x3 Discharge Data Data Completed and Pending: Completed Studies During Hospitalization Category Date Time Status XR chest 1V rachelle ble [id number] Stat Exams 03/01/21 16:19 Completed CV echo complete* [id number] Stat Ultrasound 03/02/21 10:14 Completed Labs from last 24 hours 03/02/21 03/01/21 03/01/21 03:33 23:42 19:21 WBC 6.7 RBC 4.70 Hgb 14.4 Hct 43.2 MCV 91.9 MCH 30.6 MCHC 33.3 RDW 12.9 Plt Count 156 MPV 9.9 Neut % (Auto) 58.4 Lymph % (Auto) 29.5 [place] % (Auto) 9.5 Eos % (Auto) 2.0 Baso % (Auto) 0.6 Neut # (Auto) 3.89 Lymph # (Auto) 2.0 [place] # (Auto) 0.6 Eos # (Auto) 0.1 Baso # (Auto) 0.0 Nucleated RBC % (a uto) 0 Nucleated RBCs # 0.0 D-Dimer Sodium Potassium Chloride Carbon Dioxide Anion Gap BUN Creatinine GFR Calculation Glucose Calculated Osmolal ity Lactate Calcium Magnesium Total Bilirubin AST ALT Alkaline Phosphata se Troponin T Baselin e Troponin T 120 Min [place] 32.10 H Delta Troponin T 4.10 Troponin T Hi Sens 6Hr 27.48 H Troponin T Hi Sens 6Hr Delta -0.52 L Total Protein Albumin Globulin TSH 03/01/21 03/01/21 03/01/21 19:21 17:21 17:21 WBC RBC Hgb Hct MCV MCH MCHC RDW Plt Count MPV Neut % (Auto) Lymph % (Auto) [place] % (Auto) Eos % (Auto) Baso % (Auto) Neut # (Auto) Lymph # (Auto) [place] # (Auto) Eos # (Auto) Baso # (Auto) Nucleated RBC % (a uto) Nucleated RBCs # D-Dimer 0.43 Sodium Potassium Chloride Carbon Dioxide Anion Gap BUN Creatinine GFR Calculation Glucose Calculated Osmolal ity Lactate 1.1 Calcium Magnesium 2.1 Total Bilirubin AST ALT Alkaline Phosphata se Troponin T Baselin e Troponin T 120 Min [place] Delta Troponin T Troponin T Hi Sens 6Hr Troponin T Hi Sens 6Hr Delta Total Protein Albumin Globulin TSH 0.84 03/01/21 03/01/21 03/01/21 17:21 17:21 17:21 WBC 12.8 H RBC 5.13 Hgb 15.8 Hct 46.2 MCV 90.1 MCH 30.8 MCHC 34.2 RDW 12.6 Plt Count 168 MPV 9.9 Neut % (Auto) 81.0 Lymph % (Auto) 10.3 [place] % (Auto) 7.7 Eos % (Auto) 0.2 Baso % (Auto) 0.3 Neut # (Auto) 10.39 H Lymph # (Auto) 1.3 [place] # (Auto) 1.0 H Eos # (Auto) 0.0 Baso # (Auto) 0.0 Nucleated RBC % (a uto) 0 Nucleated RBCs # 0.0 D-Dimer Sodium 141 Potassium 3.9 Chloride 104 Carbon Dioxide 22 Anion Gap 18.9 BUN 23 Creatinine 1.0 GFR Calculation 74.1 L Glucose 86 Calculated Osmolal ity 295 Lactate Calcium 9.8 Magnesium Total Bilirubin 0.5 AST 19 ALT 6 Alkaline Phosphata se 91 Troponin T Baselin e 28 H Troponin T 120 Min [place] Delta Troponin T Troponin T Hi Sens 6Hr Troponin T Hi Sens 6Hr Delta Total Protein 6.5 L Albumin 4.9 Globulin 1.6 TSH Vitals: Last Vital Signs Temp 98.5 F 03/02/21 11:03 Pulse 68 03/02/21 11:03 Resp 18 03/02/21 11:03 BP 128/73 03/02/21 11:03 Pulse Ox 93 03/02/21 11:03 Discharge Plan Discharge Patient Disposition: Home Condition: Stable Prescriptions: New nitroglycerin 0.4 mg tablet, sublingual 0.4 mg sublingual Q5M PRN (Reason: chest pain) Qty: 30 RF: 0 Continued prednisolone acetate 1 % drops,suspension 1 drp ophthalmic (eye) BID RF: 0 fluticasone propionate 50 mcg/actuation [place],Suspension 1 - 2 spray INTRANASAL DAILY PRN (Reason: Allergy Symptoms) RF: 0 tadalafil 20 mg tablet 20 mg PO PRN RF: 0 PreserVision AREDS-2 250-90-40-1 mg Capsule 1 cap PO QPM RF: 0 Equate Nasal Congestion Mist 2 spray NOSTRIL-B BEDTIME RF: 0 gabapentin 300 mg capsule 300 mg PO BID PRN (Reason: unknown) RF: 0 Ventolin HFA 90 mcg/actuation HFA aerosol inhaler 2 inh INHALATION QID PRN (Reason: shortness of breath or wheezing) RF: 0 naproxen 500 mg tablet 500 mg PO DAILY RF: 0 Discharge Orders: Discharge Order (Routine); Ordered 03/02/21 Ordered By: Marvin Owens Referrals: Karthik Palafox MD [Physician] - 1 month ([facility] will contact you to to schedule an follow-up with Dr. Palafox in 1 month. If you haven't heard from them by Thursday. Please call ) Discharge Diet: Regular Discharge Activity: Increase activity as tolerated Patient Instructions: Nitroglycerin (By mouth), Angina (DC), Chest Pain Stoplight Activity Restrictions/Additional Instructions: Please check your blood pressure when you are laying down, sitting and standing 3 mins apart twice a day. 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 Do not take ntiroglycerine for 24 hours when you have taken sildenafil it will cause low BP. Follow- up with your primary doctor and electric motor repairing supervisor. Discharge Attestations Time Spent in Discharge Care*: greater than 30 min Specific Discharge Activities: educating patient, educating and/or supporting family/caregiver, discussing with pcp/other providers, discussing with watch case polisher/social workers/dc planners, documenting/other paperwork and evaluating patient/reviewing data Status at Discharge: Cognitive status at discharge: cognitively intact , Behavioral status at discharge: cooperative , Functional status at discharge: independent ambulation Overall status at discharge: patient is back to baseline Quality Metrics Clinical Quality Measures During this hospital stay, did patient experience: None Coding Level of Care Code Acute Chg FW DC note Diagnoses Chest pain R07.9 Tobacco abuse Z72.0
--- NOTE | 2021-03-02 14:00 | PC.NURSE ---
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 Informed pt on his new medication dosing, intruction, possible side effects. Instructed pt to check his bp whn he is laying down, standing and sitting up and to keep a log of them to present to his doctors during his appointments. Pt verbalizes understanding. Discharge packet provided to pt.
--- NOTE | 2021-03-04 16:23 | PC.RESP ---
Smoking Cessation information sent to patient.
== END 2021-03-02 14:38 | disposition home or self-care (01) ==
LOC: ER 18:37 → CSU 19:31
PROVIDERS: Nurse Practitioner Family; Admitting Provider Internal Medicine; Emergency Provider Emergency Medicine; Visit Provider Internal Medicine
DX: I20.0 Unstable angina (principal); R07.9 Chest pain, unspecified; F17.210 Nicotine dependence, cigarettes, uncomplicated; I48.0 Paroxysmal atrial fibrillation
CPT/HCPCS: 36415; 71045; 80053; 83605; 83735; 84443; 84484; 85025; 85378; 93005; 93306; 96372; 99285; G0378; J1650

== ENCOUNTER → 2021-03-13 09:39 | Outpatient (BNVA) | payer MEDICARE, OTHER, MEDICAID, SELFPAY | PROVIDERS: PCP Family Medicine; Visit Provider Internal Medicine | DX: R06.02 Shortness of breath (principal); R07.9 Chest pain, unspecified; Z20.822 Contact with and (suspected) exposure to COVID-19 | CPT/HCPCS: 87635 ==

== ENCOUNTER → 2021-07-03 10:50 | Outpatient (BNVA) | payer MEDICARE, OTHER, MEDICAID, SELFPAY | PROVIDERS: PCP Family Medicine | DX: Z20.822 Contact with and (suspected) exposure to COVID-19 (principal); J44.9 Chronic obstructive pulmonary disease, unspecified | CPT/HCPCS: 87635 ==

== ENCOUNTER 2021-07-09 09:06 | Outpatient (CLI) | payer MEDICARE, OTHER, MEDICAID, SELFPAY ==
--- NOTE | 2021-07-09 09:30 | CT_ITS ---
WS: [id number] LDCT LUNG CANCER SCREENING TECHNIQUE: Noncontrast CT of the chest with coronal and sagittal reformatted images. CLINICAL INFORMATION: History of Nicotine Dependenc COMPARISON: None. DLP: 92.56 mGy.cm DIvol: 2.[address] scans at [facility] use at least one of these dose optimization techniques: automat ed exposure control; mA and/or kV adjustment per patient size (includes targeted exams where dose is matched to clinical indication); or iterative reconstruction. FINDINGS: Soft tissue mass along the left hilum extending into the left supra hilum and anterior mediastinum. A dditional spiculated left upper lobe mass at the lung apex with small satellite nodules. Additional l eft upper lobe anterior spiculated lung mass. Findings compatible with neoplasm. Left hilar mass measures approximately 8.1 x 5.1 cm. Spiculated left upper lobe mass at the lung apex measures 5.3 x 2.2 cm extending to the anterior apic al pleura. Additional Spiculated left anterior upper lobe mass measures 2.9 x 2.3 cm. Aortic calcification. Left suprahilar mass results in mass effect and narrowing of the left main pulm onary artery. Involvement of the left upper lobe bronchus. Tiny pericardial effusion. Subsegmental at electasis right lower lobe. Postoperative changes lower cervical spine. Recommend further evaluation with contrast-enhanced CT. CT/CT lung screening [id number] IMPRESSION: FINDINGS COMPATIBLE WITH MALIGNANCY. RECOMMEND FURTHER EVALUATION WITH CONTRAST -ENHANCED CHEST CT FOR BETTER ANATOMIC DETAIL. LUNG-RADS: 4X-Suspicious FOLLOW UP: See Report Notified Arina Bassett MD at 07/09/2021 10:09 AM.
== END 2021-07-09 09:07 | disposition home or self-care (01) ==
LOC: CT 09:07
PROVIDERS: PCP Family Medicine; Visit Provider Internal Medicine Critical Care Medicine
DX: Z12.2 Encounter for screening for malignant neoplasm of respiratory organs (principal); Z87.891 Personal history of nicotine dependence; R91.8 Other nonspecific abnormal finding of lung field
CPT/HCPCS: 71271

== ENCOUNTER → 2021-07-18 11:00 | Outpatient (BNVA) | payer MEDICARE, OTHER, MEDICAID, SELFPAY | PROVIDERS: PCP Family Medicine; Visit Provider Internal Medicine Critical Care Medicine | DX: Z20.822 Contact with and (suspected) exposure to COVID-19 (principal); R91.8 Other nonspecific abnormal finding of lung field | CPT/HCPCS: 87635 ==

== ENCOUNTER 2021-07-23 06:03 | Day surgery (SDC) | payer MEDICARE, OTHER, MEDICAID, SELFPAY ==
[2021-07-19 14:04] VITALS: BMI 28.7
[2021-07-23 06:20] VITALS: BP 136/78; PULSE 70; RESP 18; TEMP 36.4; O2SAT 94
[2021-07-23] MEDS: sodium chloride 0.9% 1,000 ML 30 ML IV (06:38)
--- NOTE | 2021-07-23 06:56 | ANES.PREANE2 ---
Pre-Anesthetic Assessment Pre-Anesthetic Assessment: Height/Weight: Height 1.83 m Weight 96.162 kg Temp Pulse Resp BP Pulse Ox 97.5 F L 70 18 136/78 94 07/23/21 06:20 07/23/21 06:20 07/23/21 06:20 07/23/21 06:20 07/23/21 06:20 Preop Diagnosis: Suspected lung cancer Proposed Procedure: Operation Date: 07/23/21 07:00 Proposed Procedures p Ebus [id number] R91.1(Not Applicable) - Arina Bassett MD Familial anesthetic complications: none Was Beta Arabella taken within 24 hours: Yes Was Clonidine taken within 24 hours: N/A Last intake: Intake Last Liquid Date 07/22/21 Last Liquid Time 19:30 Last Solid Date 07/22/21 Last Solid Time 18:30 Last Intake: 19:30 Social: Social History: No alcohol and No tobacco (stop 3 months ago) Exam: Pre-Anes Outpt Exam: alert, oriented x 3 and clear to auscultation bilaterally Additional Exam Findings (including area of procedure): irreg HB Airway: Submandibular: WNL Cervical ROM: WNL MP: 2 Dentition: Partials Pulmonary: Pulmonary: COPD and COMBS (more since COVID in OCTOBER) Comments: lung nodule CV/HEM: CV/HEM: Afib and Angina (Stable) (clean cath yet CP with afib with RVR) : : None reported Hepatic: Hepatic: None reported GI: GI: GERD Metabolic: Metabolic: Morbid obesity Musc/skel: Musc/skel: Lower Back Pain and OA/DJD Neuropsych: Neuropsych: Syncope (years ago) Anesthetic Plan: ASA status: 3 Anesthesia: General Risk of > 500 ml blood loss (7ml/kg in children): No Meds/Allergies Current Medications: Current Medications Generic Name Dose Route Start Last Admin Trade Name Freq PRN Reason Stop Dose Admin Sodium Chloride 1,000 mls @ 30 ml s/hr 07/23/21 06:15 07/23/21 06:38 Sodium Chloride 0.9% IV 07/24/21 06:14 30 mls/hr .Q24H [place] Administration PFSH Anesthesia PFSH: Medical History Arthritis COVID-19 Neuropathy Paroxysmal A-fib Tobacco abuse Unstable angina Surgical History H/O neck surgery History of hip surgery Previous back surgery Social History Smoking and tobacco status: former smoker Quit status (tobacco): has quit using tobacco Year quit tobacco: April 30, 2021 Former quit date comment: Hx of 1 PPD x 50 Years Second hand smoke exposure: No Smoking risk assessment/counseling performed?: No Alcohol intake: former Desire information about alcohol rehabilitation?: No Counseling given: No Desire information about substance/drug rehabilitation?: No Counseling given: No Lives independently: Yes Household members: spouse Housing: House Marital status: Highest education level completed: High School Graduate service: No Current occupational status: retired Pets and animals: Yes History of recent travel: No Current gender identity: Male Data Anesthesia Cardiac Studies: Cardiac Event Monitor 03/05/21
--- NOTE | 2021-07-23 06:59 | P.HP_ITS ---
Same Day Surgery H&P Indication for Procedure/HPI DATE OF PROCEDURE: July 23, 2021 CHIEF COMPLAINT/INDICATIONFOR SURGICAL PROCEDURE: This is a 71-year-old gentleman coming in for bronchoscopic evaluation for suspected lung cancer. The patient was initially evaluated in the office on June 20 and a low-dose CT scan for lung cancer screening revealed left hilar lung mass with possible metastatic disease identified on PET scan. PREOP DIAGNOSIS: Suspected lung cancer PLANNED PROCEDRUE: Bronchoscopy with inspection of the airway, possible endobronchial biopsy, endobronchial ultrasound-guided transbronchial needle aspiration of lymph nodes, left hilar lung mass and control of bleeding Operation Date: 07/23/21 07:00 Proposed Procedures p Ebus [id number] R91.1(Not Applicable) - Arina Bassett MD Medications/Allergies* Home Medications Medication Instructions Recorded Confirmed Type PreserVision AREDS-2 1 cap PO QPM 03/01/21 07/19/21 History albuterol sulfate [Ventolin HFA] 2 inh INHALATION QID PRN 03/01/21 07/19/21 History fluticasone propionate 1 - 2 spray INTRANASAL DAILY PRN 03/01/21 07/19/21 History tadalafil 20 mg PO PRN 03/01/21 07/19/21 History amoxicillin 500 mg PO BID 07/19/21 07/19/21 History apixaban [Eliquis] 2.5 mg PO BID 07/19/21 07/19/21 History propafenone [Rythmol SR] 225 mg PO Q12H 07/19/21 07/23/21 History Allergies/Adverse Reactions Allergy/AdvReac Type Severity Reaction Status Date / Time No Known Allergies Allergy Verified 07/19/21 14:16 Current Medications: Generic Name Dose Route Start Last Admin Trade Name Freq PRN Reason Stop Dose Admin Sodium Chloride 1,000 mls @ 30 mls/hr 07/23/21 06:15 07/23/21 06:38 Sodium Chloride 0.9% IV 07/24/21 06:14 30 mls/hr .Q24H [place] Administration Pertinent History/Comorbid Conditions* Medical History (Updated 07/09/21 @ 10:13 by Arina Bassett MD) Arthritis COVID-19 Neuropathy Paroxysmal A-fib Tobacco abuse Unstable angina Surgical History (Updated 01/19/21 @ 22:01 by Juan Miguel Mays DPM) H/O neck surgery History of hip surgery Previous back surgery Social History Smoking and tobacco status: former smoker Quit status (tobacco): has quit using tobacco Year quit tobacco: April 30, 2021 Former quit date comment: Hx of 1 PPD x 50 Years Second hand smoke exposure: No Smoking risk assessment/counseling performed?: No Alcohol intake: former Desire information about alcohol rehabilitation?: No Counseling given: No Desire information about substance/drug rehabilitation?: No Counseling given: No Lives independently: Yes Household members: spouse Housing: House Marital status: Highest education level completed: High School Graduate service: No Current occupational status: retired Pets and animals: Yes History of recent travel: No Current gender identity: Male Pertinent Exam Findings alert, oriented x 3, clear to auscultation bilaterally and regular rate & rhythm Recommendations Surgery/Procedure today Coding Level of Care Code Acute Patient Safety Officer for Elva Wise
[2021-07-23] MEDS: lidocaine 1% INJ 20 mL XX (07:22)
--- NOTE | 2021-07-23 08:10 | PM.OP ---
Operative Report Date of procedure: July 23, 2021 Pre-op Diagnosis: Suspected lung cancer Post-op diagnosis: same Brief History: This is a 71-year-old gentleman with possible metastatic lung cancer with PET positive hepatic and osseous lesion. Procedure: Name of the procedure: Bronchoscopy with inspection of the airway,endobronchial ultrasound-guided transbronchial needle aspiration of lymph nodes and control of bleeding. Indication: Suspected metastatic lung cancer Anesthesia: General anesthesia. Local anesthesia: The jose antonio in the right and left mainstem bronchi were anesthetized with 1% lidocaine, 3 mL. Description of the procedure: The procedure was explained to the patient and the consent was obtained. The patient was brought to the OR. The patient underwent endotracheal intubation for general anesthesia. Following induction of general anesthesia, the bronchoscope was advanced through the ET tube. The lower trachea appeared to be normal, no endotracheal lesion was seen. The jose antonio was sharp. The jose antonio, the right and left mainstem bronchi are anesthetized with 1% lidocaine. In a systematic manner bilateral bronchial tree was then examined. The bronchoscope was advanced into the left mainstem bronchus. The left upper lobe was examined in detail. The apicoposterior segment appeared narrow due to external compression. The anterior segment had normal caliber. There is no endobronchial lesion. The lingula and left lower lobe bronchi were examined up to the third subsegmental level and no abnormalities were identified. The bronchoscope was then introduced into the right mainstem bronchus. The right upper lobe, right middle lobe and right lower lobe bronchi were examined up to the third subsegmental level and no abnormalities were identified. The endobronchial ultrasound was introduced through the ET tube. The left hilar mass was identified under ultrasound guidance. Transbronchial needle aspiration of the left hilar mass was performed under direct ultrasound visualization. Multiple samples were obtained. Samples: 1. The transbronchial biopsies are sent for histopathology. Complications: There was no immediate complications.
[2021-07-23 08:15] VITALS: BP 132/83; PULSE 78; RESP 16; TEMP 36.7; O2SAT 99
[2021-07-23 08:19] VITALS: BP 130/82; PULSE 83; RESP 18; O2SAT 97
[2021-07-23 08:25] VITALS: BP 124/72; PULSE 78; RESP 18; TEMP 36.3; O2SAT 93
[2021-07-23 08:45] VITALS: BP 121/69; PULSE 79; RESP 18; O2SAT 96
--- NOTE | 2021-07-23 15:31 | ANE.PACU2 ---
Inpatient post-anesthesia follow up: Airway intact: Yes Vital signs: Temperature 97.4 F Pulse Rate 79 Respiratory Rate 18 Blood Pressure 121/69 Pulse Oximetry 96 Oxygen Delivery Me thod Room Air Oxygen Flow Rate 4 Fraction of Inspir ed Oxygen Hydration adequate: Yes Nausea and vomiting: No Pain level: 1 Mental status: Baseline
== END 2021-07-23 09:15 | disposition home or self-care (01) ==
PROVIDERS: PCP Family Medicine; Visit Provider Internal Medicine Critical Care Medicine
PROC: BB4BZZZ Ultrasonography of Pleura (ICD-10-PCS; principal; 2021-07-23 07:00)
PROC: 0BJ08ZZ Inspection of Tracheobronchial Tree, Via Natural or Artificial Opening Endoscopic (ICD-10-PCS; CPT 31622; 2021-07-23 07:00)
DX: C34.90 Malignant neoplasm of unspecified part of unspecified bronchus or lung (principal); J44.9 Chronic obstructive pulmonary disease, unspecified; E66.01 Morbid (severe) obesity due to excess calories; Z68.28 Body mass index [BMI] 28.0-28.9, adult; Z86.16 Personal history of COVID-19; M19.90 Unspecified osteoarthritis, unspecified site; I48.0 Paroxysmal atrial fibrillation; Z87.891 Personal history of nicotine dependence
CPT/HCPCS: 31622; 31652; 80500; 88305; 96360; 96361; J0330; J2370; J2405; J2704; J3490; J7030

== ENCOUNTER → 2021-08-01 13:48 | Outpatient (BNVA) | payer MEDICARE, OTHER, MEDICAID, SELFPAY | PROVIDERS: PCP Family Medicine; Visit Provider Internal Medicine Medical Oncology | DX: Z01.812 Encounter for preprocedural laboratory examination (principal); Z20.822 Contact with and (suspected) exposure to COVID-19; R91.8 Other nonspecific abnormal finding of lung field | CPT/HCPCS: 87635 ==

== ENCOUNTER 2021-08-09 10:13 | Day surgery (SDC) | payer MEDICARE, OTHER, MEDICAID, SELFPAY ==
[2021-08-02 14:22] VITALS: BMI 28.7
[2021-08-09] VITALS (8 sets, daily range): BP systolic 108–148; BP diastolic 72–91; PULSE 68–90; RESP 15–19; TEMP 36.4–36.8; O2SAT 91–99
--- NOTE | 2021-08-09 11:08 | ANES.PREANE2 ---
Pre-Anesthetic Assessment Pre-Anesthetic Assessment: Height/Weight: Height 1.83 m Weight 96.162 kg Preop Diagnosis: Left lung mass Proposed Procedure: Operation Date: 08/09/21 12:00 Proposed Procedures p Robinson Mediastinoscopy(Not Applicable) - Rubén French MD Was Beta Arabella taken within 24 hours: N/A Was Clonidine taken within 24 hours: N/A Last intake: Intake Last Liquid Date 08/08/21 Last Liquid Time 20:00 Last Solid Date 08/08/21 Last Solid Time 20:00 Social: Social History: Tobacco and No alcohol Exam: Pre-Anes Outpt Exam: alert, oriented x 3, clear to auscultation bilaterally and regular rate & rhythm Airway: Submandibular: WNL Cervical ROM: WNL MP: 2 Pulmonary: Pulmonary: COPD, COMBS and SOB CV/HEM: CV/HEM: Afib, Arrythmia and HTN : : None reported Hepatic: Hepatic: None reported GI: GI: None reported Metabolic: Metabolic: None reported Musc/skel: Musc/skel: OA/DJD and Weakness Neuropsych: Neuropsych: None reported Anesthetic Plan: ASA status: 3 Anesthesia: General (with ivasive arterial monitoring) PFSH Anesthesia PFSH: Medical History Arthritis COVID-19 Neuropathy Paroxysmal A-fib Tobacco abuse Unstable angina Surgical History H/O neck surgery History of hip surgery Previous back surgery Social History Smoking and tobacco status: former smoker Quit status (tobacco): has quit using tobacco Year quit tobacco: April 30, 2021 Former quit date comment: Hx of 1 PPD x 50 Years Second hand smoke exposure: No Smoking risk assessment/counseling performed?: No Alcohol intake: former Desire information about alcohol rehabilitation?: No Counseling given: No Desire information about substance/drug rehabilitation?: No Counseling given: No Lives independently: Yes Household members: spouse Housing: House Marital status: Highest education level completed: High School Graduate service: No Current occupational status: retired Pets and animals: Yes History of recent travel: No Current gender identity: Male Data Anesthesia CBC & Chem 7: 08/09/21 10:50 08/09/21 10:50 Cardiac Studies: Cardiac Event Monitor 03/05/21
[2021-08-09 11:12] LABS: Basophils # 0.1 10^3/uL (0.0-0.1); Basophils % 0.7 %; Eosinophils # 0.1 10^3/uL (0.0-0.8); Eosinophils % 1.1 %; Hemoglobin 15.4 g/dL (11.7-16.6); Lymphocytes # 1.7 10^3/uL (0.8-4.8); Lymphocytes % 19.3 %; Mean Corpuscular HGB Conc 34.2 g/dL (30.0-36.0); Mean Corpuscular Hemoglobin 30.9 pg (28.0-34.0); Mean Corpuscular Volume 90.4 fl (80-94); Mean Platelet Volume 9.6 fL (7.4-10.4); Monocytes # 0.8 10^3/uL (0.2-0.9); Monocytes % 8.4 %; Neutrophils # 6.31 10^3/uL (1.8-7.7); Neutrophils % 70.2 %; Nucleated Red Blood Cells % 0 %; Platelet Count 190 10^3/cmm (130-400); Red Blood Count 4.98 10^6/uL (4.1-5.3); Red Cell Distribution Width 12.2 % (12.1-15.1)
[2021-08-09 11:28] LABS: Blood Urea Nitrogen 15 mg/dL (8-23); Calcium 9.6 mg/dL (8.5-10.5); Carbon Dioxide 25 mmol/L (22-29); Chloride 102 mmol/L (98-107); Glomerular Filtration Rate 83.7 mL/min (90-130); Glucose 85 mg/dL (65-115); Osmolality Calculated 288 mOsm/kg (285-295); Sodium 139 mmol/L (136-145)
[2021-08-09] MEDS: sodium chloride 0.9% 1,000 ML 30 ML IV (11:29)
[2021-08-09 11:43] LABS: Anion Gap 16.5 (5-19); Potassium 4.5 mmol/L (3.5-5.1)
--- NOTE | 2021-08-09 12:17 | W.PM.OPSUD ---
Surgery/Procedure H&P Update DATE OF PROCEDURE: August 09, 2021 DATE H&P PERFORMED: 08/09/21 H&P UPDATE INFORMATION: I have reviewed H&P completed within last 30 days, I have examined patient prior to procedure, No changes to prior documentation and Changes to prior documentation as noted here (I have reviewed with Mr. Moulton and his family results of most recent PET scan discussed the rationale for our recommendation of biopsy of the AP window mass) PREOP DIAGNOSIS: Left lung mass PRIMARY INDICATION FOR PROCEDURE: PET positive left upper lobe lung lesion with large AP window mass which also is PET positive. Previous EBUS was negative for malignancy. PLANNED PROCEDURE: Operation Date: 08/09/21 12:00 Proposed Procedures p Accident Mediastinoscopy(Not Applicable) - Rubén French MD
[2021-08-09] MEDS: vancomycin 1,000 MG SDV 1000 MG IRRIGATION (13:07)
[2021-08-09] MEDS: lidocaine 1% INJ 20 mL INJECTION (13:53)
--- NOTE | 2021-08-09 14:31 | P.OP_ITS ---
Operative Report Date of procedure: August 09, 2021 Pre-op Diagnosis: Left lung mass Post-op diagnosis: same Procedure Done: Left sided [place] procedure with biopsy Specimens removed/disposition: Biopsies of the mass in AP window/frozen section diagnosis: Small cell carcinoma Surgeon: Rubén French Estimated blood loss (mL): 20 Complications: None Condition: stable Disposition: PACU Brief History: Pleasant 71-year-old gentleman with left upper lobe lung mass and extensive adenopathy in the AP window with increased activity on PET scan. Also suspicious activity in the fifth rib posteriorly as well as liver. Previous EBUS with biopsy was negative for malignancy. I recommended left-sided [place] procedure. Rationale was carefully discussed with the patient and his . Proper consents have been reviewed and signed. Procedure: Mr. Moulton was placed in supine position and underwent general endotracheal anesthesia. A right radial arterial line was placed. The entire chest was sterilely prepped and draped. A left parasternal incision was made extending over the second and third ribs at the intercostal junction with the sternum. Dissection was continued down through the to the perichondrium of the ribs. The third rib was dissected free anteriorly and posteriorly at this junction. The rib was subsequently divided and a small section anteriorly was removed. The left internal mammary artery and vein were dissected free and clipped and divided and removed from the field. Sharp and blunt dissection was carried down through periaortic adipose tissue until the mass was encountered. It was aspirated several times and then multiple incisional biopsies were taken. These were sent to pathology for both frozen and permanent section. Frozen section preliminary diagnosis has returned small cell carcinoma. Hemostasis was then confirmed using cautery and Surgicel. Once completed, retractors were removed. Sponge and needle count was correct. Wound was closed with 2-0 Vicryl suture in 2 layers and the skin was reapproximated in a subcuticular fashion utilizing 4-0 Monocryl suture. Sterile dressings were applied. Patient has equal breath sounds bilaterally and was extubated and taken to the postoperative care unit where a chest x-ray is pending. I counseled with his at the completion of the procedure.
--- NOTE | 2021-08-09 14:36 | SUR.PHASEI ---
1423 ARTERIAL LINE REMOVED, CATHETER IN PLACE, PRESSURE APPLIED
--- NOTE | 2021-08-09 14:40 | XR_ITS ---
WS: [id number] Portable AP upright chest, 08/09/2021 Clinical Data: post op cabg Comparison: Portable chest, 03/01/2021. Findings: There is a left hilar mass with greatest superior-inferior dimension of 8 cm. There is [place] in left apex which may represent obstructive atelectasis. The right lung is clear. The heart is normal. No pneumothorax is present. There are monitor leads on the chest wall. The patient has had an anterior cervical disc fusion. XR/XR chest 1V portable [id number] Impression: 1. Left hilar mass most consistent with cancer of the lung. 2. Opacity in the left apex which may represent obstructive atelectasis.
--- NOTE | 2021-08-09 14:43 | SUR.PHASEI ---
1443 ART LINE SITE BLEEDING CONTROLLED, PRESSURE DRESSING APPLIED
--- NOTE | 2021-08-09 15:10 | P.DS_ITS ---
Discharge Providers Date of Discharge: August 09, 2021 Attending Provider at Discharge: Rubén French MD Primary Care Provider: Thelma Mccall MD Reason for Visit Reason for Visit: [facility] Hospital Course Hospital Course Mr. Moulton is a 71-year-old gentleman who was admitted for planned left-sided [place] procedure to assist with diagnosis of a large AP window mass as well as a left upper lobe mass, presumed to be pulmonary malignancy with metastasis. PET scan revealed increased activity in both of these lesions as well as the fifth rib posteriorly and liver, all concerning for metastatic disease. Previous EBUS and transbronchial biopsy was negative for malignancy, therefore he was referred to our service. He was electively admitted earlier today and underwent left-sided [place] procedure. Frozen section has returned consistent with small cell carcinoma. Further studies are pending including flow cytometry to rule out lymphoma. Postoperatively, he convalesced in the PACU where he has done very well and it is felt therefore he would not require an overnight stay. Post procedure chest x-ray is clear and stable without evidence for pneumothorax. Left upper lobe mass and AP window mass are unchanged. He will be discharged home today in stable condition. He will resume all of his home medications except Eliquis for which he will hold the next 48 hours. He will schedule follow-up in my clinic in 1 week. Physical Exam Resp: COMMON NORMALS: normal respiratory effort, No use of accessory muscles and clear to auscultation bilaterally AUSCULTATION: clear to auscultation bilaterally Cardio: COMMON NORMALS: regular rate, regular rhythm, S1 normal heart sound present, No murmurs present (Cardio) and No rub (Cardio) RATE: regular rate RHYTHM: regular rhythm HEART SOUNDS: S1 normal heart sound present Extremity: COMMON NORMALS: no clubbing, cyanosis or edema Discharge Data Data Completed and Pending: Completed Studies During Hospitalization Category Date Time Status XR chest 1V rachelle ble [id number] Routine Exams 08/09/21 14:40 Completed Pending at discharge Category Date Time Status Leukocyte Reduced RBC Routine Lab 08/09/21 10:50 Results Retype for Patiet s ABO/Rh Routine Lab 08/09/21 11:51 Ordered Type and Screen R outine Lab 08/09/21 10:50 Results Urinalysis Routin e Lab 08/09/21 11:01 Ordered Labs from last 24 hours 09/09/1908/09/21 08/09/21 10:50 10:50 10:50 WBC 9.0 RBC 4.98 Hgb 15.4 Hct 45.0 MCV 90.4 MCH 30.9 MCHC 34.2 RDW 12.2 Plt Count 190 MPV 9.6 Neut % (Auto) 70.2 Lymph % (Auto) 19.3 [place] % (Auto) 8.4 Eos % (Auto) 1.1 Baso % (Auto) 0.7 Neut # (Auto) 6.31 Lymph # (Auto) 1.7 [place] # (Auto) 0.8 Eos # (Auto) 0.1 Baso # (Auto) 0.1 Nucleated RBC % (a uto) 0 Nucleated RBCs # 0.0 Sodium 139 Potassium 4.5 Chloride 102 Carbon Dioxide 25 Anion Gap 16.5 BUN 15 Creatinine 0.9 GFR Calculation 83.7 L Glucose 85 Calculated Osmolal ity 288 Calcium 9.6 Blood Type O Negative Rho(D) Type Negative Antibody Screen Negative Crossmatch See Detail Vitals: Last Vital Signs Temp 98.2 F 08/09/21 14:56 Pulse 90 08/09/21 14:56 Resp 15 08/09/21 14:56 BP 147/87 08/09/21 14:56 Pulse Ox 94 08/09/21 14:56 Discharge Plan Discharge Patient Disposition: Home Condition: Stable Prescriptions: New hydrocodone-acetaminophen 5-325 mg tablet 1 tab PO Q6H PRN (Reason: pain) Qty: 16 RF: 0 Continued Anoro Ellipta 62.5-25 mcg/actuation blister with device 1 inh inhalation DAILY 30 Days Qty: 60 RF: 3 fluticasone propionate 50 mcg/actuation [place],Suspension 1 - 2 spray INTRANASAL DAILY PRN (Reason: Allergy Symptoms) RF: 0 tadalafil 20 mg tablet 20 mg PO PRN RF: 0 PreserVision AREDS-2 250-90-40-1 mg Capsule 1 cap PO QPM RF: 0 albuterol sulfate [Ventolin HFA] 90 mcg/actuation HFA aerosol inhaler 2 inh INHALATION QID PRN (Reason: shortness of breath or wheezing) RF: 0 propafenone [Rythmol SR] 225 mg capsule,extended release 12 hr 225 mg PO Q12H RF: 0 Eliquis 5 mg tablet 2.5 mg PO BID RF: 0 Discharge Orders: Discharge Order (Routine); Ordered 08/09/21 Ordered By: Rubén French Referrals: Rubén French MD [Physician] - 1 week Discharge Diet: Usual diet Discharge Activity: Resume usual activity Patient Instructions: Post Anesthesia Care Activity Restrictions/Additional Instructions: May remove bandage in 2 days May begin daily showers in 2 days No swimming or tub baths x 2 weeks No ointments on incision Report drainage, redness, heat, increased pain, or swelling to clinic No heavy lifting x1 week Discharge Attestations Time Spent in Discharge Care*: less than 30 min Specific Discharge Activities: educating patient, educating and/or supporting family/caregiver, documenting/other paperwork and evaluating patient/reviewing data Status at Discharge: Cognitive status at discharge: cognitively intact , Behavioral status at discharge: cooperative , Functional status at discharge: independent ambulation Quality Metrics Clinical Quality Measures During this hospital stay, did patient experience: None Coding Level of Care Code Acute g DC note
[2021-08-13 13:15] LABS: Miscellaneous Test See Scanned Lab Rpt
== END 2021-08-09 16:10 | disposition home or self-care (01) ==
PROVIDERS: PCP Family Medicine; Visit Provider Thoracic Surgery (Cardiothoracic Vascular Surgery)
PROC: (CPT 39401; principal; 2021-08-09 12:00)
DX: C34.90 Malignant neoplasm of unspecified part of unspecified bronchus or lung (principal); J44.9 Chronic obstructive pulmonary disease, unspecified; I10 Essential (primary) hypertension; M19.90 Unspecified osteoarthritis, unspecified site; Z86.16 Personal history of COVID-19; I48.0 Paroxysmal atrial fibrillation; Z87.891 Personal history of nicotine dependence
CPT/HCPCS: 39401; 36415; 71045; 80048; 85025; 86850; 86900; 86920; 88305; 88331; 96365; J0697; J1100; J1885; J2250; J2405; J2704; J3010; J3370; J3490; J7030; P9016

== ENCOUNTER 2021-08-16 09:17 | Outpatient (CLI) | payer MEDICARE, OTHER, MEDICAID, SELFPAY ==
--- NOTE | 2021-08-16 15:23 | ONC CON_ITS ---
Dr. Becker New Patient Note Patient: Charlie Moulton Unit #: [id number]: [id number] Dicatated By: Jong Becker M.D.Date of Visit: Aug 16, 2021 Onc MED New Patient/Consult Referring Physician: Dr. ZIGGY BATISTA M.D. Chief Complaint: Lung cancer. History of Present Illness: This is a 71-year-old man with a newly diagnosed left upper lobe lung cancer. The preliminary indication from pathology is that it is small cell carcinoma. By clinical evaluation, his disease is stage IVB (T3, N3, M1c) with PET/CT evidence of a unifocal bone metastasis and a unifocal hepatic metastasis. He had presented with shortness of breath and leg weakness. A screening lung CT on 07/09/2021 showed a large mass in the left hilar area measuring 8.1 x 5.1 cm. Also noted was a spiculated left upper lobe mass at the apex measuring 5.3 x 2.2 cm and an additional spiculated left anterior upper lobe mass measuring 2.9 x 2.3 cm. Staging PET/CT on 07/13/2021 showed a 2.0 cm left apical nodule and a confluent 2.6 x 1.6 cm nodule with SUV 13.8, consistent with malignancy. A left upper hilar mass with invasion into the prevascular spaces of the mediastinum measured 4.4 x 8.7 cm with SUV 16.8, consistent with local metastatic disease. Small FDG positive nodes were noted in the right paratracheal, subcarinal, and AP window territories. A retropectoral left axillary node was FDG positive and likely metastatic. Also noted was a 2.4 cm region of abnormal uptake in the liver with SUV 6.5 and uptake in the posterior right fifth rib, both consistent with metastatic disease. On 07/23/2021 he underwent bronchoscopy/EBUS. There was noted to be external compression of the apical posterior left upper lobe bronchial segment. There were no endobronchial lesions identified. Biopsies were nondiagnostic. On 08/09/2021 he underwent a left-sided [place] procedure with biopsy of AP window mass. The preliminary indication on the frozen section was small cell carcinoma. Additional pathologic reports are still pending. He has very limited activity due to shortness of breath and leg weakness. 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 He is now having to use a walker to ambulate. His ECOG score is 3. His appetite is poor. His weight is down somewhere in the range of 15 pounds. He does not have fever or night sweats. He has developed hoarseness following his surgery, and he has been having to clear his throat a lot. He otherwise has just occasional cough. He has chest pain if he has to walk very far. He does not complain of nausea. He says he is having almost constant acid reflux, especially at night. Bowel and bladder function remain adequate. He has joint pain in his hands and knees. He has had a little pain in his neck/top of shoulders and a little pain in the middle of his back. He has weakness in both legs. He says his right foot feels heavy. He has numbness associated with pre-existing neuropathy. He does not complain of headache. He has just occasional dizziness, mainly with bending over. Past Medical History: His medical history consists of atrial fibrillation, chronic obstructive pulmonary disease, degenerative arthritis, degenerative disease of the spine, hypertension, and peripheral neuropathy. Past Surgical History: His surgical/procedural history consists of carpal tunnel release bilaterally, lumbar spine surgery in 2007 and 2011, [place] mediastinoscopy in 2020, bronchoscopy in 2020, bilateral cataract excisions in 2020, left total hip arthroplasty in 2012, and cervical laminectomy/fusion in 2011. Medications: Albuterol Sulfate 2 Index Value Aerosol Powder, Breath Activated Inhalation q 4 hours PRN, Anoro Ellipta 1 Inhalation (of 62.5-25 mcg/inh) Aerosol Powder, Breath Activated Inhalation daily, Cialis 1 Tablet (of 20 mg) Oral daily PRN, Eliquis 1 Tablet (of 2.5 mg) Oral b.i.d., Flonase 2 [place](s) (of 50 mcg/act) Suspension Nasal daily, PreserVision AREDS 1 Tablet Oral daily Allergies: No Known Allergies. Social History: Mr. Moulton is . He has a history of smoking 1 pack of cigarettes daily beginning at age 18. He quit smoking in April 2021. He has a history of moderate to heavy alcohol use in the past, reported that 6-12 beers daily. He quit drinking in 2007. Family History: Father with complications of rheumatic heart disease at age 62. Mother with Parkinson's disease at age 82. A sister of cancer at age 80, type unknown to the patient. Review Of Symptoms: Constitutional - He has very limited activity due to shortness of breath and to leg weakness. He is using a walker to ambulate. Appetite is poor. He has had weight loss in the range of 15 pounds. He has no fever or night sweats. ECOG score is 3, Eyes - No change in vision, ENMT - No hearing loss. He has tinnitus. He has allergy related sinus symptoms. No mouth sores. No sore throat or difficulty swallowing, Hematologic/Lymphatic - He bruises easily, Respiratory - He has shortness of breath. He has just occasional cough. No pleuritic pain or hemoptysis, Cardiovascular - He has history of paroxysmal atrial fibrillation. He has chest pain if he walks too far, Gastrointestinal - He has not been having nausea, but he has been having significant acid reflux, especially at night. No diarrhea or constipation. No blood in the stool or black stools, Genitourinary (M) - No dysuria or hematuria. He has urinary frequency and nocturia. No urgency or incontinence, Musculoskeletal - He has joint pain in his hands and knees. He has been having a little pain in his neck/top of shoulders and some pain in the middle of his back, Integumentary - No skin rash or other skin changes, Neurologic - He has not been having headache.He has dizziness occasionally, mainly with bending over. He has weakness in both legs. He complains that his right foot feels heavy.He has a history of neuropathy, Psychiatric - No anxiety or depression. He has not been sleeping well. Vital Signs: Performed on Aug 16, 2021 10:32: 3, 28.32, 2.17 sq.m, 72 in, 96 %, 68 /min, 18 /min, 128/76 mm(hg), 97.3 F (LOW), and 208.8 lbs (HIGH). Physical Examination: Constitutional - He appears generally weak, Eyes - Sclerae nonicteric. Conjunctivae clear, ENMT - No lesions noted in the oral cavity, Neck - No mass or thyromegaly, Hematologic/Lymphatic - No cervical, clavicular, or axillary adenopathy, Respiratory - Lungs are clear with diminished air movement bilaterally, Cardiovascular - Heart rhythm is regular. There is no murmur, gallop, or rub noted, Abdomen - Soft and non-tender. Liver and spleen are not enlarged. There is no abdominal mass or ascites noted and there is no inguinal adenopathy, Back/Spine - No spine or CVA tenderness noted, Extremities - No edema. There are significant arthritis changes in the right knee. Posterior tibial pulses are palpable bilaterally, Integumentary - No rashes. No suspicious skin lesions noted, Neurologic - He favors his right foot when he walks, but on exam I do not see any definite muscle weakness. He has a hyperactive right patellar reflex. Reflexes are absent in the left leg. Problem List: 1. Newly diagnosed left upper lobe lung cancer, presumed to be small cell carcinoma. By clinical evaluation his disease is stage IVB (T3, N3, M1c). 2. He has significant leg weakness. 3. COPD. 4. Hypertension. 5. History of paroxysmal atrial fibrillation. 6. Degenerative arthritis/degenerative disease of the spine. Problems Addressed with this Encounter and Plan: 1. Patient with newly diagnosed left upper lobe lung cancer. This is presumed to be small cell carcinoma, but that will have to be verified with the final pathology report, which is still pending. By clinical evaluation his disease is stage IVB with PET/CT evidence of a single site of osseous metastatic disease in the right posterior fifth rib and a single site of metastatic involvement in the liver. In the setting of extensive stage small cell carcinoma he is recommended to begin combined immunotherapy/chemotherapy with carboplatin/etoposide in combination atezolizumab for 4 cycles. Depending on response, he would then be eligible to continue with maintenance atezolizumab. I reviewed potential side effects with the chemotherapy which may include nausea/vomiting, alopecia, fatigue, and low blood counts, among others. Side effects with the atezolizumab would be immune mediated and would potentially include enteritis/colitis, pneumonitis, endocrinopathies, skin rash, and hepatic and/or renal dysfunction, among others. Treatment will be started as soon as possible next week, pending verification of insurance coverage. 2. He has significant leg weakness. I am not certain of the exact cause, but is clearly related to the underlying malignancy. He will need head MRI to evaluate for metastatic involvement in the brain. 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 I am going to empirically initiate steroid therapy with dexamethasone 4 mg twice daily pending outcome of the MRI. Signed By: Jong Becker M.D. <<Signature on File>>
== END 2021-08-16 09:18 | disposition home or self-care (01) ==
LOC: ONCMED 09:26
PROVIDERS: PCP Family Medicine; Visit Provider Internal Medicine Medical Oncology
DX: C34.12 Malignant neoplasm of upper lobe, left bronchus or lung (principal); M62.81 Muscle weakness (generalized); J44.9 Chronic obstructive pulmonary disease, unspecified; I10 Essential (primary) hypertension; I48.0 Paroxysmal atrial fibrillation; M47.9 Spondylosis, unspecified; Z79.899 Other long term (current) drug therapy
CPT/HCPCS: 99205

== ENCOUNTER 2021-08-20 09:45 | Outpatient (CLI) | payer MEDICARE, OTHER, MEDICAID, SELFPAY ==
[2021-08-20 10:48] LABS: Basophils % 0.1 %; Hematocrit 37.7 % (42.0-52.0); Hemoglobin 12.8 g/dL (11.7-16.6); Lymphocytes # 1.2 10^3/uL (0.8-4.8); Lymphocytes % 9.5 %; Mean Corpuscular Hemoglobin 30.9 pg (28.0-34.0); Mean Corpuscular Volume 91.1 fl (80-94); Mean Platelet Volume 9.5 fL (7.4-10.4); Monocytes % 7.9 %; Neutrophils # 10.15 10^3/uL (1.8-7.7); Neutrophils % 81.5 %; Nucleated Red Blood Cells % 0 %; Platelet Count 223 10^3/cmm (130-400); Red Blood Count 4.14 10^6/uL (4.1-5.3); Red Cell Distribution Width 12.6 % (12.1-15.1); White Blood Count 12.5 10^3/uL (4.0-10.0)
[2021-08-20 11:27] LABS: Alanine Aminotransferase 10 U/L (0-41); Albumin Level 4.1 g/dL (3.5-5.2); Alkaline Phosphatase 122 IU/L (40-130); Anion Gap 16.1 (5-19); Aspartate Amino Transferase 15 U/L (0-40); Blood Urea Nitrogen 21 mg/dL (8-23); Calcium 8.7 mg/dL (8.5-10.5); Carbon Dioxide 21 mmol/L (22-29); Chloride 106 mmol/L (98-107); Globulin 2.1 g/dL (1.3-4.6); Glomerular Filtration Rate 95.8 mL/min (90-130); Glucose 128 mg/dL (65-115); Osmolality Calculated 293 mOsm/kg (285-295); Potassium 4.1 mmol/L (3.5-5.1); Sodium 139 mmol/L (136-145); Thyroid Stimulating Hormone 0.27 uIU/mL (0.27-4.20); Total Bilirubin 0.5 mg/dL (0.15-1.2); Total Protein 6.2 g/dL (6.6-8.7)
[2021-08-20] MEDS: ondansetron 2 mg/ML SDV 2 mL 8 MG IVP (12:20)
[2021-08-20] MEDS: sodium chloride 0.9% 250 ML IV (12:20)
== END 2021-08-20 09:46 | disposition home or self-care (01) ==
PROVIDERS: PCP Family Medicine; Visit Provider Internal Medicine Medical Oncology
DX: Z51.12 Encounter for antineoplastic immunotherapy (principal); Z51.11 Encounter for antineoplastic chemotherapy; C34.12 Malignant neoplasm of upper lobe, left bronchus or lung; Z79.899 Other long term (current) drug therapy
CPT/HCPCS: 80053; 84443; 85025; 96367; 96375; 96413; 96417; J1100; J2405; J7040; J7050; J9022; J9045; J9181

== ENCOUNTER 2021-08-29 06:36 | Outpatient (RCR) | payer MEDICARE, OTHER, MEDICAID, SELFPAY ==
[2021-08-21] MEDS: ondansetron 2 mg/ML SDV 2 mL 8 MG IV (09:47)
[2021-08-21] MEDS: sodium chloride 0.9% 250 ML 75 ML IV (10:00)
[2021-08-22] MEDS: sodium chloride 0.9% 250 ML 75 ML IV (09:40)
[2021-08-22] MEDS: palonosetron 0.25 mg/5 mL SDV IV (09:40)
[2021-08-28] MEDS: ondansetron 2 mg/ML SDV 2 mL 8 MG IV (09:09)
[2021-08-28] MEDS: sodium chloride 0.9% 1,000 ML 999 ML IV (09:26)
[2021-08-28 09:31] LABS: Basophils # 0.1 10^3/uL (0.0-0.1); Basophils % 0.6 %; Eosinophils % 0.1 %; Hematocrit 40.9 % (42.0-52.0); Hemoglobin 13.8 g/dL (11.7-16.6); Lymphocytes # 1.3 10^3/uL (0.8-4.8); Lymphocytes % 15.5 %; Mean Corpuscular HGB Conc 33.7 g/dL (30.0-36.0); Mean Corpuscular Hemoglobin 30.5 pg (28.0-34.0); Mean Corpuscular Volume 90.3 fl (80-94); Mean Platelet Volume 9.3 fL (7.4-10.4); Monocytes # 0.1 10^3/uL (0.2-0.9); Monocytes % 1.4 %; Neutrophils # 6.66 10^3/uL (1.8-7.7); Nucleated Red Blood Cells % 0 %; Platelet Count 106 10^3/cmm (130-400); Red Blood Count 4.53 10^6/uL (4.1-5.3); Red Cell Distribution Width 12.5 % (12.1-15.1); White Blood Count 8.4 10^3/uL (4.0-10.0)
--- NOTE | 2021-08-28 09:37 | ONC FU_ITS ---
Dr. Becker Patient Follow-Up Note Patient: Charlie Moulton Unit #: [id number]: 1950 Dicatated By: Jong Becker M.D.Date of Visit:Aug 28, 2021 Onc Med Follow-up/Prog Note Chief Complaint: Lung cancer. History of Present Illness: This is a 71-year-old man with a newly diagnosed left upper lobe lung cancer. The preliminary indication from pathology is that it is small cell carcinoma. By clinical evaluation, his disease is stage IVB (T3, N3, M1c) with PET/CT evidence of a unifocal bone metastasis and a unifocal hepatic metastasis. He had presented with shortness of breath and leg weakness. A screening lung CT on 07/09/2021 showed a large mass in the left hilar area measuring 8.1 x 5.1 cm. Also noted was a spiculated left upper lobe mass at the apex measuring 5.3 x 2.2 cm and an additional spiculated left anterior upper lobe mass measuring 2.9 x 2.3 cm. Staging PET/CT on 07/13/2021 showed a 2.0 cm left apical nodule and a confluent 2.6 x 1.6 cm nodule with SUV 13.8, consistent with malignancy. A left upper hilar mass with invasion into the prevascular spaces of the mediastinum measured 4.4 x 8.7 cm with SUV 16.8, consistent with local metastatic disease. Small FDG positive nodes were noted in the right paratracheal, subcarinal, and AP window territories. A retropectoral left axillary node was FDG positive and likely metastatic. Also noted was a 2.4 cm region of abnormal uptake in the liver with SUV 6.5 and uptake in the posterior right fifth rib, both consistent with metastatic disease. On 07/23/2021 he underwent bronchoscopy/EBUS. There was noted to be external compression of the apical posterior left upper lobe bronchial segment. There were no endobronchial lesions identified. Biopsies were nondiagnostic. On 08/09/2021 he underwent a left-sided [place] procedure with biopsy of AP window mass. Pathology was consistent with small cell carcinoma. In the setting of extensive stage disease, he was recommended to undergo treatment with carboplatin/etoposide chemotherapy in combination with atezolizumab. His other medical illnesses include COPD, hypertension, atrial fibrillation, degenerative arthritis/degenerative disease of the spine, and peripheral neuropathy. He has a history of smoking 1 pack of cigarettes daily beginning at age 18. He quit smoking in April 2021. He had significant alcohol use in the past, but he quit drinking in 2007. INTERIM HISTORY: He began cycle 1 of carboplatin/etoposide/atezolizumab on 08/20/2021. He tolerated it without acute toxicity. As a precaution, I had him continue steroid therapy with dexamethasone 4 mg twice daily pending outcome of his staging brain MRI. He is seen for a follow-up visit. He is at day 8 of his chemotherapy cycle. His indicates that he has continued to get weaker day by day. His activity is very limited. ECOG score is 3. His appetite and oral intake are very poor. He does not have fever or night sweats. He has not had sore mouth or throat, he does have hoarseness and he sometimes gets congested in his throat. He is short of breath with activity. He has just occasional cough. He does not complain of chest pain. He has had a little bit of nausea. His acid reflux symptoms have improved with medication. He was having constipation, but he says his bowels are now loose. He complains that his urination is slow. He has no significant joint or bone pain. He does not complain of headache. He has occasional orthostatic lightheadedness. He has numbness in his right foot, which is chronic. Medications: Albuterol Sulfate 2 Index Value Aerosol Powder, Breath Activated Inhalation q 4 hours PRN, Anoro Ellipta 1 Inhalation (of 62.5-25 mcg/inh) Aerosol Powder, Breath Activated Inhalation daily, Cialis 1 Tablet (of 20 mg) Oral daily PRN, Eliquis 1 Tablet (of 2.5 mg) Oral b.i.d., Flonase 2 [place](s) (of 50 mcg/act) Suspension Nasal daily, PreserVision AREDS 1 Tablet Oral daily Allergies: No Known Allergies. Vital Signs: Performed on Aug 28, 2021 08:33 Height - 72.00 in Weight - 200.4 lbs (LOW) BSA - 2.13 sq.m BMI - 27.18 Temperature - 96.8 F (LOW) Pulse - 78 /min Respiration - 18 /min BP - 109/70 mm(hg) O2 Sat - 97 % Pain - 0 Fatigue - 10 Physical Examination: Constitutional - He appears generally weak, Eyes - Sclerae nonicteric. Conjunctivae clear, ENMT - No lesions noted in the oral cavity, Hematologic/Lymphatic - No cervical, clavicular, or axillary adenopathy, Respiratory - Lungs are clear with diminished air movement bilaterally, Cardiovascular - Heart rhythm is regular. There is no murmur, gallop, or rub noted, Abdomen - Soft. Liver and spleen are not enlarged. There is no abdominal mass or ascites noted and there is no inguinal adenopathy, Extremities - No edema, Neurologic - No focal neurologic deficits noted. Problem List: 1. 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 2. He has significant leg weakness. 3. COPD. 4. Hypertension. 5. History of paroxysmal atrial fibrillation. 6. Degenerative arthritis/degenerative disease of the spine. Problems Addressed with this Encounter and Plan: Patient with small cell carcinoma involving the left upper lobe lung cancer, by clinical evaluation stage IVB with PET/CT evidence of a single site of osseous metastatic disease in the right posterior fifth rib and a single site of metastatic involvement in the liver. In the setting of extensive stage small cell carcinoma he was recommended to undergo combined immunotherapy/chemotherapy with carboplatin/etoposide in combination atezolizumab for 4 cycles. He began cycle 1 on 08/20/2021. He tolerated it without acute toxicity. He is now at day 8. He unfortunately continues to feel very poorly from a general standpoint. His indicates that he has continued to get progressively weaker day by day. He also has very poor appetite and oral intake. His day 8 laboratory studies are still pending, and he also is scheduled to have his staging brain MRI today. He will have further evaluation depending on those results, but in the meantime, he will be given IV hydration and IV antiemetics. Signed By: Jong Becker M.D. <<Signature on File>>
[2021-08-28 10:25] LABS: Alanine Aminotransferase 10 U/L (0-41); Albumin Level 3.9 g/dL (3.5-5.2); Alkaline Phosphatase 90 IU/L (40-130); Anion Gap 17.7 (5-19); Aspartate Amino Transferase 14 U/L (0-40); Blood Urea Nitrogen 33 mg/dL (8-23); Calcium 8.8 mg/dL (8.5-10.5); Carbon Dioxide 20 mmol/L (22-29); Chloride 96 mmol/L (98-107); Glomerular Filtration Rate 111.8 mL/min (90-130); Glucose 93 mg/dL (65-115); Osmolality Calculated 275 mOsm/kg (285-295); Potassium 4.7 mmol/L (3.5-5.1); Sodium 129 mmol/L (136-145); Total Bilirubin 0.9 mg/dL (0.15-1.2); Total Protein 5.9 g/dL (6.6-8.7)
--- NOTE | 2021-08-28 11:14 | MR_ITS ---
WS: [id number] MRI HEAD WITH CONTRAST TECHNIQUE: Sagittal T1, T2 axial, T2 axial FLAIR, axial susceptibility weighted imaging, axial diffus ion weighted images, and coronal T2 images were obtained. Pre and post-T1 axial and post T1 coronal i mages. ADC and FSPGR images. CLINICAL INFORMATION: LUNG CANCER, LEG WEAKNESS COMPARISON: None. FINDINGS: Numerous supratentorial ring-enhancing lesions with peripheral restricted diffusion most consistent w ith metastatic disease considering clinical history. Supratentorial lesions in a periventricular dist ribution and at the nino-white interface. No significant midline shift. No hydrocephalus. Largest les ions measure approximately approximately 1.5 CM. Largest lesions demonstrate mild to moderate surroun ding edema. No visualized infratentorial lesions. No brainstem lesions. Approximately 12 lesions in t otal. No hemosiderin on susceptibly weighted images. Normal optic chiasm and pituitary infundibulum. Modera te symmetric atrophy temporal lobes and hippocampal formations. Normal cavernous sinuses and Meckel's cave. Normal posterior fossa. Normal vascular flow voids at the skull base. Normal visualized dural venous sinuses. MR/MR head wo/w con [id number] IMPRESSION: 1. Numerous peripheral enhancing supratentorial metastatic lesions the largest measuring approximately 1.5 CM. No visualized infratentorial lesions. 2. Mild to moderate edema about the largest lesions in the bilateral parietal lobes and right frontal lobe. 3. No significant midline shift. No hydrocephalus. 4. No visualized infratentorial lesions. Notified Jong Becker MD at 08/28/2021 1:31 PM.
[2021-08-28] MEDS: gadobenate dimeglumine 20 mL vial IV (11:54)
--- NOTE | 2021-08-29 15:39 | N.ONRAD NP_ITS ---
Radiation Oncology Consultation Patient Name: Charlie Moulton Date of : 1950 Date of Service: 08/29/2021 Attending Physician: Bismark Woodson M.D. Charlie Moulton was seen in consultation this afternoon at the request of Jong Becker M.D. for consideration of palliative cranial radiotherapy for the management of a recently diagnosed extensive stage small cell lung cancer with brain metastases. He was initially evaluated by his primary care physician in May for worsening dyspnea. He was referred to the [facility]'s Department of Pulmonology. He was evaluated by Luis Bassett M.D. for which a screening thoracic CT scan was ordered on account of the patient's tobacco history ([address] imaging completed on July 09, 2021 revealed a spiculated left upper lobe mass measuring 5.3 cm x 2.2 cm, a 2.9 cm x 2.3 cm left anterior upper lobe mass, and a left hilar mass measuring 8.1 cm x 5.1 cm. A bronchoscopy with endobronchial ultrasound-guided biopsy of the left hilar mass was negative for malignancy. A PET CT obtained on July 13, 2021 confirmed hypermetabolic activity within the left upper lobe nodules, the left hilar mass, mediastinal adenopathy, osseous disease in the posterior aspect of the right fifth rib, a left axillary lymph node, and a solitary liver metastasis near the hepatic inferior vena cava. A left-sided [place] procedure with biopsy was performed by Rubén French M.D. on August 09, 2021. A biopsy of an AP window node demonstrated CK 8/18 and CK Larry positivity with PETER???67 of 100% diagnosing a small cell carcinoma. An MRI of the head ordered on August 28, 2021 (independently reviewed in [facility]) affirmed numerous enhancing supratentorial metastatic lesions. Mr. Moulton presents to my office for discussion regarding palliative cranial radiotherapy. Following a discussion concerning Mr. Moulton???s MR, an attempt at palliative cranial radiotherapy is warranted. I would recommend a two week course of radiotherapy. A computed tomographic radiotherapy planning scan will be acquired to identify the clinical tumor volume. He has been prescribed a glucocorticoid for cerebral edema and a proton pump inhibitor prophylactically. The potential toxicities of brain radiotherapy were reviewed. The patient has verbalized understanding and would like to discuss treatment before making a final decision. The patient???s medical treatment plan was discussed with Jong Becker M.D. Signed by: Dr. Bismark Woodson 08/29/2021 3:38:08 PM
== END 2021-08-29 23:59 | disposition home or self-care (01) ==
LOC: ONCMED 06:36
PROVIDERS: PCP Family Medicine; Visit Provider Internal Medicine Medical Oncology
DX: Z51.11 Encounter for antineoplastic chemotherapy (principal); C34.12 Malignant neoplasm of upper lobe, left bronchus or lung; M62.81 Muscle weakness (generalized); J44.9 Chronic obstructive pulmonary disease, unspecified; I10 Essential (primary) hypertension; I48.0 Paroxysmal atrial fibrillation; M47.9 Spondylosis, unspecified; Z79.899 Other long term (current) drug therapy
CPT/HCPCS: 70553; 80053; 85025; 87635; 96361; 96365; 96367; 96375; 96413; 99215; J1100; J2405; J2469; J7040; J7050; J9181

== ENCOUNTER 2021-08-30 03:03 | Inpatient (IN) | payer MEDICARE, OTHER, MEDICAID, SELFPAY ==
[2021-08-30] VITALS (15 sets, daily range): BP systolic 95–160; BP diastolic 62–85; PULSE 77–108; RESP 16–22; TEMP 36.4–37.1; O2SAT 96–99; BMI 27.1
--- NOTE | 2021-08-30 03:17 | CTR_ITS ---
PROCEDURE INFORMATION: Exam: CT Abdomen And Pelvis With Contrast Exam date and time: 08/30/2021 3:17 AM Age: 71 years old Clinical indication: Abdominal pain; Localized; Lower; Prior surgery; Surgery date: 6+ months; Surgery type: L-spine , left hip; Additional info: Rule out worsening cancer TECHNIQUE: Imaging protocol: Computed tomography of the abdomen and pelvis with contrast. Radiation optimization: All CT scans at this facility use at least one of these dose optimization techniques: automated exposure control; mA and/or kV adjustment per patient size (includes targeted exams where dose is matched to clinical indication); or iterative reconstruction. Contrast material: OMNI 300; Contrast volume: 95 ml; Contrast route: INTRAVENOUS (IV); COMPARISON: CT abdomen pelvis w con* [id number] 08/25/2018 11:39 AM RADIATION DOSE METRICS: Total DLP (mGy-cm): 1579.36 FINDINGS: Lungs: There is a background centrilobular emphysema. Strandy opacities are seen in the right lung base likely representing pleural or parenchymal scarring. Liver: Normal. No mass. Gallbladder and bile ducts: Normal. No calcified stones. No ductal dilation. Pancreas: Normal. No ductal dilation. Spleen: Normal. No splenomegaly. Adrenal glands: Normal. No mass. Kidneys and ureters: Normal. No hydronephrosis. Stomach and bowel: There is diffuse bowel wall thickening seen within the transverse and mid descending colon with haziness seen along the serosal margin colon, findings compatible with diffuse colitis. Some fluid is seen within the cecum, ascending colon and within the distal sigmoid colon and rectum. Appendix: No evidence of appendicitis. Intraperitoneal space: Unremarkable. No free air. No significant fluid collection. Vasculature: Hypoattenuation lesions are seen adjacent to the hepatic veins centrally compatible with small cysts or hemangiomas. The largest measures 11 mm. Lymph nodes: Unremarkable. No enlarged lymph nodes. Urinary bladder: Unremarkable as visualized. Reproductive: Dystrophic calcifications are seen within the prostate gland. Bones/joints: Status post bipolar left hip replacement. Pedicle screws and posterior rods extend from L2-L5. Severe loss of disc height is seen at the L1-L2 level. There is a 4 mm retrolisthesis L1 on L2 likely secondary to the degenerative disc disease at this level. Severe loss of disc height and vacuum disc phenomenon is seen at L5-S1. Soft tissues: Unremarkable. CT/CT abdomen pelvis w con* [id number] IMPRESSION: 1. There is diffuse bowel wall thickening with haziness present along the serosal margin of the colon extending from the transverse colon through the mid descending colon compatible with colitis. 2. Fluid is seen within the cecum, ascending colon, distal sigmoid colon and rectum. 3. Hypoattenuation lesions are seen near the confluence of the hepatic veins possibly representing cysts or hemangiomas. However, these appear new compared with 08/25/2018. Radiation Dose CTDIVOL = (mGy): DLP = 1579.36 (mGy-cm)
[2021-08-30] MEDS: HYDROmorphone 1 mg/mL INJ 1 mL 2 MG IVP (03:28)
[2021-08-30 03:31] LABS: Basophils % 0.3 %; Hematocrit 43.3 % (42.0-52.0); Hemoglobin 15.3 g/dL (11.7-16.6); Lymphocytes # 0.5 10^3/uL (0.8-4.8); Lymphocytes % 13.5 %; Mean Corpuscular HGB Conc 35.3 g/dL (30.0-36.0); Mean Corpuscular Hemoglobin 30.8 pg (28.0-34.0); Mean Corpuscular Volume 87.3 fl (80-94); Mean Platelet Volume 9.6 fL (7.4-10.4); Monocytes # 0.2 10^3/uL (0.2-0.9); Monocytes % 6.9 %; Neutrophils # 2.75 10^3/uL (1.8-7.7); Neutrophils % 78.7 %; Nucleated Red Blood Cells % 0 %; Platelet Count 74 10^3/cmm (130-400); Red Blood Count 4.96 10^6/uL (4.1-5.3); Red Cell Distribution Width 12.3 % (12.1-15.1); White Blood Count 3.5 10^3/uL (4.0-10.0)
--- NOTE | 2021-08-30 03:33 | W.ED.GENADLT ---
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 Patient states that shortly after getting his MRI yesterday, he developed sudden onset of dysuria when he went home. Since then, patient has had relief of symptoms today however noticed sharp onset of right lower quadrant abdominal pain. Reports nausea and vomiting but denies fever/chills. Patient decided come to the emergency room for evaluation. Of note, patient is going chemotherapy, last round chemotherapy was 8 days ago. Onset: 8 days ago Duration:8 days Location:home Severity:severe Review of Systems Narrative: Constitutional: No fever, no chills. HEENT: No vision changes CV: No chest pain, no palpitations PULM: no cough, no dyspnea. GI: +RLQ abdominal pain, +N/+V/D. : +dysuria MSKEL: No muscle pain SKIN: No new rashes, no lesions. NEURO: No headache, no focal weakness. HEME: No visible bruises PSYCH: Normal mood PFSH ED PFSH: Medical History Arthritis COVID-19 Neuropathy Paroxysmal A-fib Tobacco abuse Unstable angina Surgical History H/O neck surgery History of hip surgery Previous back surgery Social History Quit status (tobacco): has quit using tobacco Year quit tobacco: April 30, 2021 Former quit date comment: Hx of 1 PPD x 50 Years Second hand smoke exposure: No Smoking risk assessment/counseling performed?: No Alcohol intake: former Desire information about alcohol rehabilitation?: No Counseling given: No Desire information about substance/drug rehabilitation?: No Counseling given: No Lives independently: Yes Household members: spouse Housing: House Marital status: Highest education level completed: High School Graduate service: No Current occupational status: retired Pets and animals: Yes History of recent travel: No Current gender identity: Male Physical Exam Narrative: EXAM NARRATIVE: Head: Atraumatic Eyes: PERRL, conjunctiva without injection ENT: Mucous membrane moist NECK: Supple, ROM intact LUNGS: LCTAB, no crackles/rhonchi CV: RRR ABDOMEN: Soft, +moderate RLQ focal TTP. NO guarding rebound, guarding, rigidity. No CVA tenderness to percussion. Neg Santa/Neg McBurney's point tenderness, no suprabupic tenderness to palpation. EXTREMITY: Normal ROM SKIN: No rash or erythema NEURO: Awake and alert, no focal motor deficits PSYCH: Normal mood and affect Course Vital Signs: Vital signs: Vital Signs Temperature 97.5 F L 09/02/21 14:27 Pulse Rate 89 09/02/21 14:27 Respiratory Rate 17 09/02/21 14:27 Blood Pressure 112/76 09/02/21 14: Pulse Oximetry 98 09/02/21 14:27 MDM - General Adult MDM Narrative: Medical decision making narrative: 71-year-old male with history of small cell carcinoma on chemotherapy last round was 7 days ago presenting to the emergency room for evaluation of severe right lower quadrant abdominal pain and dysuria symptoms. On exam, patient is in moderate distress with significant tenderness palpation right lower quadrant. Patient is afebrile in the emergency room. White count of 3.5 with 80% neutrophils indicating patient is not neutropenic at this time. CT abdomen pelvis showed colitis. Given significant pain despite multiple doses of Dilaudid, patient will be admitted to the hospital for management of significant pain and colitis. In addition, patient tells me that he would like to remain comfortable and plan his goals of care discussion. Patient has yet to follow-up with Dr. Becker. S/p 500cc of IVF and zofran for nausea. Disposition: Admission for serial observation, rehydration, pain control, and goals of care discussion. Lab Data: Labs: Lab Results 08/30/21 08/30/21 08/30/21 03:27 03:27 03:27 WBC 3.5 10^3/uL L 10^ 3/uL (4.0-10.0) RBC 4.96 10^6/uL 10^6 /uL (4.1-5.3) Hgb 15.3 g/dL g/dL (11.7-16.6) Hct 43.3 % % (42.0-52.0) MCV 87.3 fl fl (80-94) MCH 30.8 pg pg (28.0-34.0) MCHC 35.3 g/dL g/dL (30.0-36.0) RDW 12.3 % % (12.1-15.1) Plt Count 74 10^3/cmm L 10^ 3/cmm (130-400) MPV 9.6 fL fL (7.4-10.4) Neut % (Auto) 78.7 % % Lymph % (Auto) 13.5 % % [place] % (Auto) 6.9 % % Eos % (Auto) 0.0 % % Baso % (Auto) 0.3 % % Neut # (Auto) 2.75 10^3/uL 10^3 /uL (1.8-7.7) Lymph # (Auto) 0.5 10^3/uL L 10^ 3/uL (0.8-4.8) [place] # (Auto) 0.2 10^3/uL 10^3/ uL (0.2-0.9) Eos # (Auto) 0.0 10^3/uL 10^3/ uL (0.0-0.8) Baso # (Auto) 0.0 10^3/uL 10^3/ uL (0.0-0.1) Nucleated RBC % (a uto) 0 % % Nucleated RBCs # 0.0 /100WBC /100W BC Specimen Type Sample Site ABG pH ABG pCO2 ABG pO2 ABG HCO3 ABG O2 Saturation ABG Base Excess Mode Test A-a O2 Gradient Hematocrit Hgb O2 Saturation Carboxyhemoglobin Methemoglobin Total Hemoglobin Ionized Calcium O2 Delivery Device O2 Liters/Min FiO2 Solar [employer] Installation Crew Member ID Sodium 135 mmol/L L mmol /L (136-145) Potassium 4.6 mmol/L mmol/L (3.5-5.1) Chloride 97 mmol/L L mmol/ L (98-107) Carbon Dioxide 25 mmol/L mmol/L (22-29) Anion Gap 17.6 (5-19) BUN 32 mg/dL H mg/dL (8-23) Creatinine 0.8 mg/dL mg/dL (0.7-1.2) GFR Calculation 95.8 mL/min mL/mi n (90-130) Glucose 144 mg/dL H mg/dL (65-115) Calculated Osmolal ity 289 mOsm/kg mOsm/ kg (285-295) Lactate 2.3 mmol/L H mmol /L (0.5-2.2) Calcium 8.9 mg/dL mg/dL (8.5-10.5) Total Bilirubin 1.1 mg/dL mg/dL (0.15-1.2) AST 11 U/L U/L (0-40) ALT 10 U/L U/L (0-41) Alkaline Phosphata se 91 IU/L IU/L (40-130) Total Protein 6.2 g/dL L g/dL (6.6-8.7) Albumin 3.9 g/dL g/dL (3.5-5.2) Globulin 2.3 g/dL g/dL (1.3-4.6) Lipase 12 U/L L U/L (13-60) Urine Color Urine Appearance Urine pH Ur Specific Gravit y Urine Protein Urine Glucose (UA) Urine Ketones Urine Blood Urine Nitrate Urine Bilirubin Urine Urobilinogen Ur Leukocyte Rosario ase Urine RBC Urine WBC Ur Squamous Epith Cells Triple Phos Maggy ls Amorphous Sediment Urine Bacteria 08/30/21 08/30/21 08/30/21 05:00 10:11 11:20 WBC 1.9 10^3/uL L 10^ 3/uL (4.0-10.0) RBC 4.99 10^6/uL 10^6 /uL (4.1-5.3) Hgb 15.3 g/dL g/dL (11.7-16.6) Hct 44.8 % % (42.0-52.0) MCV 89.8 fl fl (80-94) MCH 30.7 pg pg (28.0-34.0) MCHC 34.2 g/dL g/dL (30.0-36.0) RDW 12.4 % % (12.1-15.1) Plt Count 66 10^3/cmm L 10^ 3/cmm (130-400) MPV 9.3 fL fL (7.4-10.4) Neut % (Auto) 68.2 % % Lymph % (Auto) 27.1 % % [place] % (Auto) 3.7 % % Eos % (Auto) 0.0 % % Baso % (Auto) 0.5 % % Neut # (Auto) 1.28 10^3/uL L 10 ^3/uL (1.8-7.7) Lymph # (Auto) 0.5 10^3/uL L 10^ 3/uL (0.8-4.8) [place] # (Auto) 0.1 10^3/uL L 10^ 3/uL (0.2-0.9) Eos # (Auto) 0.0 10^3/uL 10^3/ uL (0.0-0.8) Baso # (Auto) 0.0 10^3/uL 10^3/ uL (0.0-0.1) Nucleated RBC % (a uto) 0 % % Nucleated RBCs # 0.0 /100WBC /100W BC Specimen Type Sample Site ABG pH ABG pCO2 ABG pO2 ABG HCO3 ABG O2 Saturation ABG Base Excess Mode Test A-a O2 Gradient Hematocrit Hgb O2 Saturation Carboxyhemoglobin Methemoglobin Total Hemoglobin Ionized Calcium O2 Delivery Device O2 Liters/Min FiO2 [employer] Install[employer] Crew Member ID Sodium Potassium Chloride Carbon Dioxide Anion Gap BUN Creatinine GFR Calculation Glucose Calculated Osmolal ity Lactate 3.7 mmol/L H mmol /L (0.5-2.2) Calcium Total Bilirubin AST ALT Alkaline Phosphata se Total Protein Albumin Globulin Lipase Urine Color Yellow (Yellow) Urine Appearance Hazy A (CLEAR) Urine pH 8 H (5-7) Ur Specific Gravit y 1.005 (1.005-1.030) Urine Protein Neg (Negative) Urine Glucose (UA) Norm (Normal) Urine Ketones Negative (Negative) Urine Blood 3+ H (Negative) Urine Nitrate Negative (Negative) Urine Bilirubin Neg (Negative) Urine Urobilinogen Norm mg/dL mg/dL (Negative) Ur Leukocyte Rosario ase 2+ H (Negative) Urine RBC 5-10 /hpf H /hpf (0-2) Urine WBC 25-40 /hpf H /hpf (0-5) Ur Squamous Epith Cells 0-4 /hpf H /hpf (0-5) Triple Phos Maggy ls 0-4 /hpf H /hpf Amorphous Sediment 2+ /hpf /hpf Urine Bacteria 2+ /hpf H /hpf (NONE) 08/30/21 16:37 WBC RBC Hgb Hct MCV MCH MCHC RDW Plt Count MPV Neut % (Auto) Lymph % (Auto) [place] % (Auto) Eos % (Auto) Baso % (Auto) Neut # (Auto) Lymph # (Auto) [place] # (Auto) Eos # (Auto) Baso # (Auto) Nucleated RBC % (a uto) Nucleated RBCs # Specimen Type Arterial Sample Site Radial, left ABG pH 7.38 (7.35-7.45) ABG pCO2 36.0 mmHg mmHg (35-45) ABG pO2 109.0 mmHg H mmHg (80.0-100.0) ABG HCO3 21.1 mmol/L L mmo l/L (22-26) ABG O2 Saturation 98.5 ABG Base Excess -3.6 mmol/L L mmo l/L (-2.0-2.0) Mode Test Pos A-a O2 Gradient 9.5 mmHg mmHg (5-10) Hematocrit 41.5 % L % (42-52) Hgb O2 Saturation 96.9 % % (95-100) Carboxyhemoglobin 0.8 %THgb %THgb (0.4-20.1) Methemoglobin 0.8 % % (0.4-1.5) Total Hemoglobin 13.5 g/dL L g/dL (14-18) Ionized Calcium 1.1 mmol/L mmol/L (1.1-1.4) O2 Delivery Device Nc O2 Liters/Min 3.0 % % FiO2 32.0 % % Solar [employer] Installation Crew Member ID Ed Sodium 130.0 mmol/L L mm ol/L (131-143) Potassium 4.4 mmol/L mmol/L (3.5-5.0) Chloride Carbon Dioxide Anion Gap BUN Creatinine GFR Calculation Glucose 131.0 mg/dL H mg/ dL (70-115) Calculated Osmolal ity Lactate Calcium Total Bilirubin AST ALT Alkaline Phosphata se Total Protein Albumin Globulin Lipase Urine Color Urine Appearance Urine pH Ur Specific Gravit y Urine Protein Urine Glucose (UA) Urine Ketones Urine Blood Urine Nitrate Urine Bilirubin Urine Urobilinogen Ur Leukocyte Rosario ase Urine RBC Urine WBC Ur Squamous Epith Cells Triple Phos Maggy ls Amorphous Sediment Urine Bacteria Imaging Data^: Other Imaging: Radiologist's impression: [address] [id number] Scan ReportSigned Patient: Charlie Moulton Vu #: [id number]: 2At#:[id number]/Sex: 71 / MADM Date: 08/30/21Loc: ERRoom/Bed:Attending Dr: Ordering Provider/Ordering MD: Callie Acevedo MD Date of Service: 08/30/21 Procedure(s): CT abdomen pelvis w con* [id number] Accession Number(s): [id number] Report Number: [id number] PROCEDURE INFORMATION: Exam: CT Abdomen And Pelvis With Contrast Exam date and time: 08/30/2021 3:17 AM Age: 71 years old Clinical indication: Abdominal pain; Localized; Lower; Prior surgery; Surgery date: 6+ months; Surgery type: L-spine , left hip; Additional info: Rule out worsening cancer TECHNIQUE: Imaging protocol: Computed tomography of the abdomen and pelvis with contrast. Radiation optimization: All CT scans at this facility use at least one of these dose optimization techniques: automated exposure control; mA and/or kV adjustment per patient size (includes targeted exams where dose is matched to clinical indication); or iterative reconstruction. Contrast material: OMNI 300; Contrast volume: 95 ml; Contrast route: INTRAVENOUS (IV); COMPARISON: CT abdomen pelvis w con* [id number] 08/25/2018 11:39 AM RADIATION DOSE METRICS: Total DLP (mGy-cm): 1579.36 FINDINGS: Lungs: There is a background centrilobular emphysema. Strandy opacities are seen in the right lung base likely representing pleural or parenchymal scarring. Liver: Normal. No mass. Gallbladder and bile ducts: Normal. No calcified stones. No ductal dilation. Pancreas: Normal. No ductal dilation. Spleen: Normal. No splenomegaly. Adrenal glands: Normal. No mass. Kidneys and ureters: Normal. No hydronephrosis. Stomach and bowel: There is diffuse bowel wall thickening seen within the transverse and mid descending colon with haziness seen along the serosal margin colon, findings compatible with diffuse colitis. Some fluid is seen within the cecum, ascending colon and within the distal sigmoid colon and rectum. Appendix: No evidence of appendicitis. Intraperitoneal space: Unremarkable. No free air. No significant fluid collection. Vasculature: Hypoattenuation lesions are seen adjacent to the hepatic veins centrally compatible with small cysts or hemangiomas. The largest measures 11 mm. Lymph nodes: Unremarkable. No enlarged lymph nodes. Urinary bladder: Unremarkable as visualized. Reproductive: Dystrophic calcifications are seen within the prostate gland. Bones/joints: Status post bipolar left hip replacement. Pedicle screws and posterior rods extend from L2-L5. Severe loss of disc height is seen at the L1-L2 level. There is a 4 mm retrolisthesis L1 on L2 likely secondary to the degenerative disc disease at this level. Severe loss of disc height and vacuum disc phenomenon is seen at L5-S1. Soft tissues: Unremarkable. CT/CT abdomen pelvis w con* [id number] IMPRESSION: 1. There is diffuse bowel wall thickening with haziness present along the serosal margin of the colon extending from the transverse colon through the mid descending colon compatible with colitis. 2. Fluid is seen within the cecum, ascending colon, distal sigmoid colon and rectum. 3. Hypoattenuation lesions are seen near the confluence of the hepatic veins possibly representing cysts or hemangiomas. However, these appear new compared with 08/25/2018. Radiation Dose CTDIVOL = (mGy): DLP = 1579.36 (mGy-cm) Dictated By:Bobo Rudolph MDSigned By:Bobo Rudolph MDSigned Date/Time:08/30/21 0441DD/ 0440 Discharge Plan Discharge Patient Disposition: Admitted As Inpatient Admit Provider: Chloe Sinha Clinical Impression: Intractable abdominal pain, Nausea & vomiting, Small cell carcinoma Condition: Stable Discharge Diet: GI Soft Discharge Activity: Increase activity as tolerated Coding Level of Care Code ED International Tax Manager for Elva Wise
[2021-08-30] MEDS: ondansetron 2 mg/ML SDV 2 mL 4 MG IVP (03:35)
[2021-08-30] MEDS: iohexol 300 mg/mL 100 mL Btl IV (03:39)
[2021-08-30] MEDS: sodium chloride 0.9% 500 ML IV ×2 (03:43→05:44)
[2021-08-30 03:56] LABS: Alanine Aminotransferase 10 U/L (0-41); Albumin Level 3.9 g/dL (3.5-5.2); Alkaline Phosphatase 91 IU/L (40-130); Anion Gap 17.6 (5-19); Aspartate Amino Transferase 11 U/L (0-40); Blood Urea Nitrogen 32 mg/dL (8-23); Calcium 8.9 mg/dL (8.5-10.5); Carbon Dioxide 25 mmol/L (22-29); Chloride 97 mmol/L (98-107); Globulin 2.3 g/dL (1.3-4.6); Glomerular Filtration Rate 95.8 mL/min (90-130); Glucose 144 mg/dL (65-115); Lipase 12 U/L (13-60); Osmolality Calculated 289 mOsm/kg (285-295); Potassium 4.6 mmol/L (3.5-5.1); Sodium 135 mmol/L (136-145); Total Bilirubin 1.1 mg/dL (0.15-1.2); Total Protein 6.2 g/dL (6.6-8.7)
[2021-08-30 03:57] LABS: Lactate (Lactic Acid level) 2.3 mmol/L (0.5-2.2)
[2021-08-30] MEDS: HYDROmorphone 1 mg/mL INJ 1 mL 0.5 MG IVP ×6 (05:05→23:08)
[2021-08-30 05:41] LABS: Urine Appearance Hazy (CLEAR); Urine Color Yellow (Yellow)
[2021-08-30 05:42] LABS: Add Urine Microscopic? YES; Bilirubin Urine Neg (Negative); Blood Urine 3+ (Negative); Glucose Urine UA Norm (Normal); Ketones Urine Negative (Negative); Leukocyte Esterase Urine 2+ (Negative); Nitrate Urine Negative (Negative); Protein Urine Neg (Negative); Specific Gravity, Urine 1.005 (1.005-1.030); Urobilinogen Urine Norm (Negative); pH Urine 8 (5-7)
[2021-08-30 05:43] LABS: Add Urine Culture? Yes; Amorphous Sediment Urine 2+ /hpf; Bacteria Urine 2+ /hpf; Squamous Epithelial Cell Urine 0-4 /hpf (0-5); Triple Phosphate Crystal Urine 0-4 /hpf; WBC Urine 25-40 /hpf (0-5)
--- NOTE | 2021-08-30 06:49 | P.HP_ITS ---
Providers/Chief Complaint Admitting Physician: Chloe Sinha Primary Care Provider: Thelma Mccall MD Chief Complaint: abd pain N/V/D History of Present Illness 71-year-old male with advanced stage small cell lung cancer with brain Mets who presented to the hospital with diffuse abdominal pain . Patient stated this has been progressively worsening in the past day. No nausea or vomiting. Noted multiple episodes of loose watery diarrhea . Also noted dysuria , increased frequency and urgency. Denies any fever chills . Denies chest pain or shortness of breath. Laboratory workup showed a WBC of 3.5, hemoglobin of 15.3, hematocrit of 43.3 and a platelet count of 74. Sodium 135, potassium 4.6, chloride 97, bicarb 25, BUN 32 and a creatinine of 0.8. Lipase of 12 . Urinalysis showed 2+ leukocyte esterase , and 2+ bacteria . COVID-19 PCR was not detected. Patient was given IV fluids, IV Dilaudid and ceftriaxone 1 g IV x1. Imaging studies included a CT abdomen pelvis which showed diffuse bowel wall thickening and haziness present along the serosal margin of the colon extending from the transverse to the mid descending compatible with colitis. Fluid is seen within the cecum, ascending colon, distal sigmoid colon and rectum Review of Systems General: Reports: 10 or more systems reviewed and unremarkable except in HPI and below Medications/Allergies Home Medications Medication Instructions Recorded Confirmed Last Taken Type PreserVision AREDS-2 1 cap PO QPM 03/01/21 08/30/21 08/08/21 History albuterol sulfate [Ventolin HFA] 2 inh INHALATION QID PRN 03/01/21 08/30/21 07/31/21 History fluticasone propionate 1 - 2 spray INTRANASAL DAILY PRN 03/01/21 08/30/21 07/31/21 History umeclidinium 62.5 mcg-vilanterol 1 inh INHALATION DAILY 30 Days #60 06/20/21 08/30/21 08/08/21 Rx 25 mcg/actuation powdr for ea inhalation Eliquis 2.5 mg PO BID 07/19/21 08/30/21 08/03/21 History propafenone [Rythmol SR] 225 mg PO Q12H 07/19/21 08/30/21 08/09/21 History hydrocodone-acetaminophen 1 tab PO Q6H PRN #16 tab 08/09/21 08/30/21 Unknown Rx omeprazole 40 mg capsule,delayed 40 mg PO DAILY #30 cap 08/13/21 08/30/21 Unknown Rx release dexamethasone 4 mg tablet 4 mg PO BID 08/21/21 08/30/21 Unknown History alum-mag hydroxide-simeth [Maalox] See Rx Instructions .ROUTE .COMPLEX 08/30/21 08/30/21 Unknown History famotidine [Pepcid AC] 20 mg PO DAILY 08/30/21 08/30/21 Unknown History loratadine [Claritin] 10 mg PO DAILY PRN 08/30/21 08/30/21 Unknown History prochlorperazine maleate 10 mg PO Q4H PRN 08/30/21 08/30/21 Unknown History trazodone 50 mg PO BEDTIME 08/30/21 08/30/21 Unknown History Allergies Allergy/AdvReac Type Severity Reaction Status Date / Time No Known Allergies Allergy Verified 08/30/21 10:32 PFSH Acute PFSH: Medical History Arthritis COVID-19 Neuropathy Paroxysmal A-fib Tobacco abuse Unstable angina Surgical History H/O neck surgery History of hip surgery Previous back surgery Social History Quit status (tobacco): has quit using tobacco Year quit tobacco: April 30, 2021 Former quit date comment: Hx of 1 PPD x 50 Years Second hand smoke exposure: No Smoking risk assessment/counseling performed?: No Alcohol intake: former Desire information about alcohol rehabilitation?: No Counseling given: No Desire information about substance/drug rehabilitation?: No Counseling given: No Lives independently: Yes Household members: spouse Housing: House Marital status: Highest education level completed: High School Graduate service: No Current occupational status: retired Pets and animals: Yes History of recent travel: No Current gender identity: Male Vitals/I&O/Wt Last Vital Signs Temp 98.7 F 08/30/21 06:11 Pulse 88 08/30/21 06:29 Resp 18 08/30/21 06:29 BP 136/80 08/30/21 06:29 Pulse Ox 97 08/30/21 06:29 08/29/21 08/29/21 08/30/21 14:59 22:59 06:59 Intake Total 500 / 500 Balance 500 / 500 Weight last 48 hrs Weight 90.718 kg Physical Exam Narrative: EXAM NARRATIVE: General- alert awake in moderate distress due to a bdominal pain HEENT- grossly unremarkable Chest -nonlabored respiration CVS -normal sinus rhythm Abdomen- diffuse tenderness Extremities-no edema Data : 08/30/21 10:11 08/30/21 03:27 A&P Assessment and plan (1) Intractable abdominal pain: Status: Acute (2) Small cell carcinoma: Status: Acute (3) UTI (urinary tract infection): Status: Acute (4) Atrial fibrillation: Status: Acute Qualifiers: Atrial fibrillation type: unspecified Qualified Code(s): I48.91 - Unspecified atrial fibrillation (5) Hypertension: Status: Acute (6) COPD (chronic obstructive pulmonary disease): Status: Acute Additional A&P Information Abdominal Pain / Diarrhea / Colitis Pain control CT abd/pelvis ? possible colitis IV abx Zofran prn for nausea Urinary tract infection F/u on culture Rocephin 1g IV daily DVT ppx SCDS Verify and restart eliquis Attestations Medical Necessity Statement*: Will require over 2 midnight stay in hospital Time Spent in Patient Care: Greater than 35 minutes (>than 50% of time spent in counselling and/or direct pt care on unit) . Coding Level of Care Code Acute [employer] Resource Teacher for Chg Fwd Diagnoses Intractable abdominal pain R10.9 Small cell carcinoma C80.1 UTI (urinary tract infection) N39.0 Atrial fibrillation I48.91 Atrial fibrillation type: unspecified Hypertension I10 COPD (chronic obstructive pulmonary disease) J44.9
[2021-08-30] MEDS: morphine 4 mg/mL SDV 1 mL IVP (07:04)
--- NOTE | 2021-08-30 07:17 | PC.NURSE ---
pt up to [facility] with sba. Approximately 300 mls bloody stool/urine mixed. Pt states he has not been having bloody stools at home.
[2021-08-30] MEDS: cefTRIAXone 1,000 MG in sodium chloride 0.9% (plus) 50 ML 100 MG IV (08:50)
[2021-08-30] MEDS: metroNIDAZOLE IV 500 MG/100 ML PREMIX 100 MG IV (08:52)
[2021-08-30] MEDS: pantoprazole DR 40 mg Tablet PO (08:53)
[2021-08-30] MEDS: HYDROcodone-acetaminophen 5-325 mg Tablet 1 TAB PO (08:53)
[2021-08-30 10:20] LABS: Basophils % 0.5 %; Hematocrit 44.8 % (42.0-52.0); Hemoglobin 15.3 g/dL (11.7-16.6); Lymphocytes # 0.5 10^3/uL (0.8-4.8); Lymphocytes % 27.1 %; Mean Corpuscular HGB Conc 34.2 g/dL (30.0-36.0); Mean Corpuscular Hemoglobin 30.7 pg (28.0-34.0); Mean Corpuscular Volume 89.8 fl (80-94); Mean Platelet Volume 9.3 fL (7.4-10.4); Monocytes # 0.1 10^3/uL (0.2-0.9); Monocytes % 3.7 %; Neutrophils # 1.28 10^3/uL (1.8-7.7); Neutrophils % 68.2 %; Nucleated Red Blood Cells % 0 %; Platelet Count 66 10^3/cmm (130-400); Red Blood Count 4.99 10^6/uL (4.1-5.3); Red Cell Distribution Width 12.4 % (12.1-15.1); White Blood Count 1.9 10^3/uL (4.0-10.0)
--- NOTE | 2021-08-30 10:35 | PC.PHAR ---
PT STATES HIS HELPS HIM WITH HIS MEDICATIONS-PTS ANABELLE VERIFIED MEDICATIONS-RX FILLED ON 07/06/21 30D/S FOR ELIQUIS 5MG BID-PTS STATES DR GARZA OFFICE STATES ITS OKAY FOR PT TO TAKE 2.5MG BID-NOTES ARE MADE IN THE PHARMACY COMMENTS
[2021-08-30 11:44] LABS: Lactate (Lactic Acid level) 3.7 mmol/L (0.5-2.2)
[2021-08-30] MEDS: piperacillin-tazobactam 3.375 GM in sodium chloride 0.9% (plus) 50 ML IV ×2 (12:14→18:48)
--- NOTE | 2021-08-30 13:03 | XR_ITS ---
WS: [id number] Exam: XR acute abdomen series [id number] Date/Time of Exam: 08/30/2021 1:03 PM Reason For Exam: abdominal pain Chest x-ray compared to prior study 08/09/2021. 4.1 cm mass seen in the upper lobe of the left lung and is somewhat smaller than noted previously. Al so left hilar mass is smaller. Remaining lung tang are clear no pneumothorax. No infiltrates or ple ural effusions. Heart size is normal. Mediastinal contours appear normal. Hardware in the lower cervi clint spine. Bony elements are intact. Flat and erect abdomen. No bowel obstruction or free air. No obvious organ enlargement. Fusion hardwa re noted in the lumbar spine. Radiographic contrast in the urinary bladder. Total hip replacement on the left partially visualized. XR/XR acute abdomen series [id number] IMPRESSION: 1. 4.1 cm mass in the upper lobe of the left lung slightly smaller than noted p reviously. The previously noted left hilar mass is also significantly smaller. 2. The lungs are otherwise clear without infiltrate or pleural effusion 3. No acute abdominal process identified.
--- NOTE | 2021-08-30 15:26 | PM.PN ---
Subjective Subjective: Interval history: Patient seen and examined this morning. When seen in the morning he was in significant amount of abdominal pain. He came in with watery diarrhea and his most recent chemo was 1 week ago. He denies any other complaints. In addition he has been requiring oxygen ever since he presented to the hospital. Nurse also reported there was some bloody diarrhea present this morning as well. Hemoglobin was repeated and was 15.3 is stable. Denies any chest pain, lower extremity edema. Patient did state that he was very tired and was not answering many questions. He was reseen around 4 PM with family present at bedside. Patient this time was sitting up in bed appearing much more comfortable. He only required 1 dose of Dilaudid in the morning. He stated his pain was a lot better. and son were present at bedside. CODE STATUS was discussed. Patient and family in agreement to be DNR/DNI. Family is also requesting for Dr. Becker to come in and see the patient in the hospital. Vitals/I&O/Wt Last Vital Signs Temp 98.7 F 08/30/21 11:07 Pulse 108 H 08/30/21 11:07 Resp 16 08/30/21 11:07 BP 154/83 08/30/21 11:07 Pulse Ox 97 08/30/21 11:07 08/30/21 08/30/21 08/30/21 06:59 14:59 22:59 Intake Total 500 / 500 650 / 650 Output Total / Balance 500 / 500 649 / 649 Weight last 48 hrs Weight 90.718 kg Weight 90.718 kg Physical Exam Narrative: EXAM NARRATIVE: General: Alert oriented x3, patient seen in bed in pain. When seen later in the afternoon he seemed More comfortable. HEENT: Normocephalic, atraumatic, EOMI, breathing 2 L nasal cannula. Cardio: Regular rate rhythm, normal S1-S2, no murmurs rubs gallops, Respiratory: Good bilateral air entry, no wheezes no rhonchi appreciated, lungs pretty clear to auscultation. GI: Abdomen generally soft, mild distention, tender to palpation in all 4 quadrants, hyperactive bowel sounds present. When to be seen in the afternoon there was improvement in pain with palpation. No signs of acute abdomen at this time. Behavior: Appropriate and cooperative Extremities: no edema, no cyanosis Data : 08/30/21 10:11 08/30/21 03:27 Micro: Microbiology 08/30/21 05:00 Legionella Urinary Antigen - Final Urine,Voided Bacterial Antigens - Final 08/30/21 06:36 Blood Culture - Preliminary Blood SPECIMEN COLLECTED 08/30/21 06:30 Blood Culture - Preliminary Blood SPECIMEN COLLECTED A&P Assessment and plan (1) Small cell carcinoma of left lung: Status: Acute (2) COPD (chronic obstructive pulmonary disease): Status: Acute (3) Nausea & vomiting: Status: Acute (4) Colitis: Status: Acute Additional A&P Information CT abdomen pelvis with contrast on admission showed: 1. There is diffuse bowel wall thickening with haziness present along the serosal margin of the colon extending from the transverse colon through the mid descending colon compatible with colitis. 2. Fluid is seen within the cecum, ascending colon, distal sigmoid colon and rectum. 3. Hypoattenuation lesions are seen near the confluence of the hepatic veins possibly representing cysts or hemangiomas. However, these appear new compared with 08/25/2018. Patient recently had chemo 1 week ago. I discussed case with Dr. Becker over the phone. 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 Gave patient 1 dose Solu-Medrol [address] him on Solu-Medrol 40 twice daily. We will also get infectious work-up: Check stool culture, blood culture, MRSA nares, bacterial antigens Legionella, Streptococcus, procalcitonin. I will stop ceftriaxone and metronidazole and start patient on Zosyn to cover Pseudomonas. Discussed with Dr. Flowers over the phone. If patient develops mucositis we will start him on vancomycin. We will keep an eye on cell counts. If neutropenic we will start Neupogen. Abdominal flatplate was done this morning but no evidence of free air. Low threshold to call surgery. Watch for signs of acute abdomen. Elevated lactic acid: Patient received 1.5 L bolus in the ER. I have ordered more fluids for the patient today. We will keep patient n.p.o. Zofran for nausea. I will repeat lactic acid around 8 PM again today. Small cell carcinoma of left lung: Patient will follow up with Dr. Becker outpatient. I will inform him however that patient would like to see him during his inpatient stay. COPD: He does not appear to be in exacerbation at this time Fluids: Normal saline 100 cc/h Electrolytes: Replete as needed Nutrition: N.p.o. Activity: As tolerated DVT prophylaxis: Hold off for now as patient has rectal bleeding. Attestations Medical Necessity Statement*: Patient needs inpatient care for next 48 to 72 hours. Time Spent in Patient Care: Greater than 35 minutes Seen multiple times today. 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 Fwd Diagnoses Small cell carcinoma of left lung C34.92 COPD (chronic obstructive pulmonary disease) J44.9 Nausea & vomiting R11.2 Colitis K52.9
--- NOTE | 2021-08-30 15:34 | PC.CHAP ---
Pastoral Care Encounter/Spiritual Assessment Type of Contact [] Declined electric motor tester visit [] Patient/Family/Request visit [] Outpatient visit [] Follow-up visit [] Physician referral [] Code/Alert [] Routine visit [] Staff referral [] Actively dying [xx] Patient sleeping [] Family support [] [] Out of room [] Palliative care [] [] Receiving care in room [] Pre-surgical visit [] Trauma [] Long length of stay [] ICU visit [] Other: Relational/Emotional Strength [] Patient feels connected with others/family/visitors/staff [] Distress [] Loneliness/isolation [] Abandonment Spirituality of Patient [] Person of Sharyn [] Attends Zoroastrianism of their Sharyn [] Believes in Prayer [] Reads Bible or Buddhist materials [] There are Spiritual issues to be addressed Second Operator Interventions [] Prayer [] Active listening [] Non-anxious presence [] Spiritual/emotional support [] Crisis/trauma care [] Spiritual counseling [] Bereavement support [] Provided bereavement packet [] Provided Bible/devotional materials [] Provided toy/stuffed animal, coloring book to patient or family member [] Provided Communion [] Anointing/Elmer [] Salvation [] Completed spiritual assessment [] Other: Impact on Illness or Injury [] Angry [] Fearful [] Anxious [] Often cries [] Exhaustion [] Unable to work [] Unable to attend jehovah's witness [] Unable to walk/stand [] Unable to read [] Unable to drive [] Unable to eat/drink [] Unable to sleep [] Unable to be with family [] Patient intubated [] Other: Summary Patient's spouse was present. Both were asleep. Follow up later. Time spent with patient
[2021-08-30] MEDS: sodium chloride 0.9% 1,000 ML 999 ML IV (16:16)
[2021-08-30 16:48] LABS: ABG PH Result 7.38 (7.35-7.45); Alveolar-Arterial Oxygen Gradi 9.5 mmHg (5-10); Arterial Blood Gas Hematocrit 41.5 % (42-52); Base Excess ABG -3.6 mmol/L (-2.0-2.0); Blood Gas Allen Test Pos; Blood Gas Operator Identificat ED; Blood Gas Sample Site Radial, left; Blood Gas Sample Type Arterial; Carboxyhemoglobin 0.8 %THgb (0.4-20.1); HCO3 ABG 21.1 mmol/L (22-26); HGB O2 Sat 96.9 % (95-100); Ionized Calcium Level - ABG 1.1 mmol/L (1.1-1.4); Methemoglobin 0.8 % (0.4-1.5); Oxygen Device NC; Oxygen Saturation ABG 98.5; Potassium Level - ABG 4.4 mmol/L (3.5-5.0); Total Hemoglobin 13.5 g/dL (14-18)
[2021-08-30] MEDS: sodium chloride 0.9% 1,000 ML 100 ML IV (17:40)
[2021-08-30 21:19] LABS: Lactate (Lactic Acid level) 2.6 mmol/L (0.5-2.2)
--- NOTE | 2021-08-30 22:57 | PC.NURSE ---
PT UPSET Pt upset that his IV was alarming for some time. Attempted to explain to pt that we had a Code Blue on floor and apologized several times. Was still not happy with explaination
[2021-08-31] VITALS (14 sets, daily range): BP systolic 97–111; BP diastolic 64–79; PULSE 68–132; RESP 16–20; TEMP 36.5–36.9; O2SAT 92–99
[2021-08-31] MEDS: HYDROcodone-acetaminophen 5-325 mg Tablet 1 TAB PO (00:41)
--- NOTE | 2021-08-31 01:10 | PC.NURSE ---
BLD CULTURES/CRITICAL RESULT Lab called with report of 1osf 3 bld cultures + for gm variant rods. Dr Sinha notified
[2021-08-31] MEDS: HYDROmorphone 1 mg/mL INJ 1 mL 0.5 MG IVP ×5 (01:52→20:25)
[2021-08-31] MEDS: sodium chloride 0.9% 1,000 ML 100 ML IV ×3 (02:41→23:01)
[2021-08-31] MEDS: piperacillin-tazobactam 3.375 GM in sodium chloride 0.9% (plus) 50 ML IV ×3 (02:41→17:45)
[2021-08-31 05:27] LABS: Basophils % 0.4 %; Hematocrit 35.6 % (42.0-52.0); Lymphocytes # 0.5 10^3/uL (0.8-4.8); Lymphocytes % 19.9 %; Mean Corpuscular HGB Conc 33.7 g/dL (30.0-36.0); Mean Corpuscular Hemoglobin 30.8 pg (28.0-34.0); Mean Corpuscular Volume 91.5 fl (80-94); Mean Platelet Volume 9.9 fL (7.4-10.4); Monocytes # 0.2 10^3/uL (0.2-0.9); Monocytes % 7.8 %; Neutrophils % 69.3 %; Nucleated Red Blood Cells % 0 %; Platelet Count 42 10^3/cmm (130-400); Red Blood Count 3.89 10^6/uL (4.1-5.3); Red Cell Distribution Width 12.9 % (12.1-15.1); White Blood Count 2.3 10^3/uL (4.0-10.0)
--- NOTE | 2021-08-31 05:42 | PC.NURSE ---
SHIFT SUMMARY Has rested for intervals. Has received IV Dilaudid for c/o abd pain and po Hydrocodone X1 when was too early for the Dilaudid. Has had good relief with meds. Rating abd pain 4-5 with administration of pain meds. Abd is soft with tenderness nilay across lower right abdomen. Does say pain/tenderness is improved from admission. Has denied any nausea. Remains NPO except for ice chips and sips. IV fluids infusing at 100ml/hr rate. Voiding per urinal usually about 100ml at a time. No diarrhea this shift.
[2021-08-31 05:49] LABS: Lactate (Lactic Acid level) 1.5 mmol/L (0.5-2.2)
[2021-08-31 05:55] LABS: Anion Gap 14.1 (5-19); Blood Urea Nitrogen 32 mg/dL (8-23); Carbon Dioxide 24 mmol/L (22-29); Chloride 98 mmol/L (98-107); Glomerular Filtration Rate 74.1 mL/min (90-130); Glucose 117 mg/dL (65-115); Magnesium 2.2 mg/dL (1.7-2.3); Osmolality Calculated 280 mOsm/kg (285-295); Phosphorus 3.8 mg/dL (2.5-4.5); Potassium 5.1 mmol/L (3.5-5.1); Sodium 131 mmol/L (136-145)
[2021-08-31 08:33] LABS: Slide Review Slide Review Perform
[2021-08-31] MEDS: pantoprazole DR 40 mg Tablet PO (08:50)
[2021-08-31] MEDS: ipratropium-albuterol 3 mL Neb INHALATION (10:19)
--- NOTE | 2021-08-31 11:03 | P.PN_ITS ---
Subjective Medications: Medication Review Details: Patient feeling much better compared to yesterday. He states the pain has decreased significantly compared to when he first came in. Today patient was sitting up on the edge of the bed looking comfortable. He was also off nasal cannula. He looks much more energetic and active compared to yesterday when seen. He did state that he did not have another bowel movement and is not really passing gas. He continues to be n.p.o. He states his abdomen is sore but not hurting like it was before. Vitals/I&O/Wt Last Vital Signs Temp 97.7 F 08/31/21 08:00 Pulse 68 08/31/21 10:28 Resp 18 08/31/21 10:21 BP 102/69 08/31/21 08:00 Pulse Ox 93 08/31/21 10:21 08/30/21 08/31/21 08/31/21 22:59 06:59 14:59 Intake Total 1100 / 1750 1311.667 / 3061.667 Output Total 200 / 201 375 / 576 225 / 225 Balance 900 / 1549 936.667 / 2485.667 -225 / -225 Weight last 48 hrs Weight 90.718 kg Weight 90.718 kg Physical Exam Narrative: EXAM NARRATIVE: General: Alert oriented x3, seen sitting at the edge of the bed appearing very comfortable. HEENT: Normocephalic, atraumatic, EOMI, breathing room air. No evidence of mucositis. Cardio: Regular rate rhythm, normal S1-S2, no murmurs rubs gallops, Respiratory: Good bilateral air entry, no wheezes no rhonchi appreciated, GI: Abdomen generally soft, mild distention, tender to palpation in right lower quadrant, bowel sounds are present. Behavior: Appropriate and cooperative Extremities: no edema, no cyanosis Data : 08/31/21 05:05 08/31/21 05:05 Micro: Microbiology 08/30/21 16:15 MRSA Culture - Final Nose 08/30/21 05:00 Urine Culture - Preliminary Urine,Clean Catch Gram Negative Rods 08/30/21 06:30 Blood Culture - Preliminary Blood NEGATIVE TO DATE 08/30/21 06:36 Blood Culture - Preliminary Blood 08/30/21 05:00 Legionella Urinary Antigen - Final Urine,Voided Bacterial Antigens - Final A&P Assessment and plan (1) Intractable abdominal pain: Status: Acute (2) Small cell carcinoma: Status: Acute (3) UTI (urinary tract infection): Status: Acute (4) Atrial fibrillation: Status: Acute Qualifiers: Atrial fibrillation type: unspecified Qualified Code(s): I48.91 - Unspecified atrial fibrillation (5) Hypertension: Status: Acute (6) COPD (chronic obstructive pulmonary disease): Status: Acute Additional A&P Information CT abdomen pelvis with contrast on admission showed: 1. There is diffuse bowel wall thickening with haziness present along the serosal margin of the colon extending from the transverse colon through the mid descending colon compatible with colitis. 2. Fluid is seen within the cecum, ascending colon, distal sigmoid colon and rectum. 3. Hypoattenuation lesions are seen near the confluence of the hepatic veins possibly representing cysts or hemangiomas. However, these appear new compared with 08/25/2018. Patient recently had chemo 1 week ago. 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 Gave patient 1 dose Solu-Medrol 125 mg. We will continue Solu-Medrol 40 BID. Urine culture shows gram-negative rods. Patient is on Zosyn will continue. 1 set blood cultures are negative to date. Second set of blood culture 1 out of 3 bottles positive for gram variable rods. MRSA nares negative. Stool culture is negative. Continue patient on Zosyn. ID has been consulted. If patient develops mucositis we will start him on vancomycin. We will keep an eye on cell counts. If neutropenic we will start Neupogen. Platelets 42 today. if active bleeding, transfuse. Or transfuse < 10,000. Updated Dr. Becker over the phone. Will put consult for him as per family's request. Abdominal flatplate ordered this morning. Patient is not passing gas. I will check for ileus. He does have bowel sounds at this time however. Low threshold to call surgery. Watch for signs of acute abdomen. Elevated lactic acid: Resolved We will keep patient n.p.o. Zofran for nausea. Small cell carcinoma of left lung: Patient will follow up with Dr. Becker outpatient. I will inform him however that patient would like to see him during his inpatient stay. COPD: He does not appear to be in exacerbation at this time Fluids: Normal saline 100 cc/h Electrolytes: Replete as needed Nutrition: N.p.o. Activity: As tolerated DVT prophylaxis: Hold off for now as patient has rectal bleeding. Will place patient on SCDs for now. Attestations Medical Necessity Statement*: Requires inpatient level of stay at this time. Time Spent in Patient Care: 16 - 35 minutes Coding Level of Care Code Acute Hardware Technician for g Fwd Diagnoses Intractable abdominal pain R10.9 Small cell carcinoma C80.1 UTI (urinary tract infection) N39.0 Atrial fibrillation I48.91 Atrial fibrillation type: unspecified Hypertension I10 COPD (chronic obstructive pulmonary disease) J44.9
--- NOTE | 2021-08-31 13:30 | XRR_ITS ---
PROCEDURE INFORMATION: Exam: XR Abdomen Exam date and time: 08/31/2021 1:30 PM Age: 71 years old Clinical indication: Bloating; Additional info: Rule out ileus TECHNIQUE: Imaging protocol: XR of the abdomen. Views: Frontal supine view of the abdomen. 1 View. COMPARISON: CR XR acute abdomen series [id number] 08/30/2021 1:13 PM FINDINGS: Gastrointestinal tract: Mild gaseous distention of the colon most prominent at the cecum measuring nearly 10 cm. No distended small bowel loops. Bones/joints: Posterior spinal fusion hardware from the L2-L5 segment with intervertebral disc spacers. Partially visualized left total hip arthroplasty. XR/XR abdomen 1V* [id number] IMPRESSION: Mild gaseous distention of the colon, most prominent at the cecum. No dilated small bowel loops. Developing ileus is not excluded, consider radiographic follow-up to evaluate for interval change.
[2021-09-01] VITALS (9 sets, daily range): BP systolic 103–158; BP diastolic 67–86; PULSE 89–101; RESP 16–20; TEMP 36.5–36.8; O2SAT 92–100
[2021-09-01] MEDS: piperacillin-tazobactam 3.375 GM in sodium chloride 0.9% (plus) 50 ML IV ×3 (02:37→17:45)
[2021-09-01] MEDS: HYDROmorphone 1 mg/mL INJ 1 mL 0.5 MG IVP ×2 (02:37→21:39)
--- NOTE | 2021-09-01 07:17 | PC.NURSE ---
AM NOTE THIS NURSE TO ROOM - PT IN BATHROOM STATING HE WAS PASSING GAS AND HAD SMALL SMEAR OF BM - REQUESTING FOOD - UPDATED PT TO ORDERS FOR THE DAY - WILL CONTINUE TO MONITOR
[2021-09-01] MEDS: pantoprazole DR 40 mg Tablet PO (08:06)
[2021-09-01] MEDS: sodium chloride 0.9% 1,000 ML 100 ML IV ×2 (08:06→17:16)
--- NOTE | 2021-09-01 08:08 | PM.PN ---
Subjective Subjective: Interval history: Seen and examined this morning. Patient appeared very comfortable and is doing a lot better compared to admission. He also states his abdominal pain has improved significantly although he is still sore in some areas. 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 He is asking for food and would like to eat at this point. He also states Dr. Becker came to see him pig machine operator today but will be coming back again in the afternoon. He would like me to call his for an update and I will be calling her today. I did tell the patient that patient's urine culture is positive and is being treated with antibiotics. Report came back for Proteus mirabilis. Vitals/I&O/Wt Last Vital Signs Temp 97.7 F 09/01/21 04:00 Pulse 101 H 09/01/21 04:00 Resp 18 09/01/21 04:00 BP 103/67 09/01/21 04:00 Pulse Ox 98 09/01/21 04:00 08/31/21 09/01/21 09/01/21 22:59 06:59 14:59 Intake Total 100 / 1050 950 / 2000 908.333 / 908.333 Output Total 675 / 1100 500 / 1600 Balance -575 / -50 450 / 400 908.333 / 908.333 Physical Exam Narrative: EXAM NARRATIVE: General: Alert oriented x3, seen sitting up in bed appearing very comfortable. HEENT: Normocephalic, atraumatic, EOMI, breathing room air. No evidence of mucositis. Patient forgot his dentures at home. Cardio: Regular rate rhythm, normal S1-S2, no murmurs rubs gallops, Respiratory: Good bilateral air entry, no wheezes no rhonchi appreciated, GI: Abdomen generally soft, mild distention, tender to palpation in right lower quadrant, bowel sounds are present. Tenderness significantly improved compared to admission. Behavior: Appropriate and cooperative Extremities: no edema, no cyanosis Data : 08/31/21 05:05 08/31/21 05:05 Micro: Microbiology 08/30/21 16:15 MRSA Culture - Final Nose 08/30/21 05:00 Urine Culture - Preliminary Urine,Clean Catch Gram Negative Rods 08/30/21 06:30 Blood Culture - Preliminary Blood NEGATIVE TO DATE A&P Assessment and plan (1) Intractable abdominal pain: Status: Acute (2) Small cell carcinoma: Status: Acute (3) UTI (urinary tract infection): Status: Acute (4) Atrial fibrillation: Status: Acute Qualifiers: Atrial fibrillation type: unspecified Qualified Code(s): I48.91 - Unspecified atrial fibrillation (5) Hypertension: Status: Acute (6) COPD (chronic obstructive pulmonary disease): Status: Acute Additional A&P Information #Proteus mirabilis UTI #Chemotherapy-induced colitis #Chemo induced pancytopenia #Bacteremia -possible contaminant #Small cell carcinoma of left lung, metastatic disease #Chronic hypoxic respiratory failure, not dependent on oxygen at home At admission. CT abdomen pelvis with contrast on admission showed: 1. There is diffuse bowel wall thickening with haziness present along the serosal margin of the colon extending from the transverse colon through the mid descending colon compatible with colitis. 2. Fluid is seen within the cecum, ascending colon, distal sigmoid colon and rectum. 3. Hypoattenuation lesions are seen near the confluence of the hepatic veins possibly representing cysts or hemangiomas. However, these appear new compared with 08/25/2018. Patient recently had chemo 1 week ago. 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 Gave patient 1 dose Solu-Medrol 125 mg. We will continue Solu-Medrol 40 BID. I will switch patient to prednisone 60 mg daily starting tomorrow for total of 5 days. Urine culture shows gram-negative rods. Final report states Proteus mirabilis sensitive to ceftriaxone, Zosyn. I will continue Zosyn for today and switch to ceftriaxone tomorrow. 1 set blood cultures are negative to date. Second set of blood culture 1 out of 3 bottles positive for gram variable rods. MRSA nares negative. Stool culture is negative. I will repeat blood cultures today to ensure they are negative. Continue patient on Zosyn. ID has been consulted. If patient develops mucositis we will start him on vancomycin. We will keep an eye on cell counts. If neutropenic we will start Neupogen. Platelets 42 09/01. if active bleeding, transfuse. Or transfuse < 10,000. Updated Dr. Becker over the phone. Will put consult for him as per family's request. Today's labs are pending. Will manage further after looking at today's platelet count. Abdominal flatplate ordered 09/01. Patient is not passing gas. I will check for ileus. He does have bowel sounds at this time however.. Patient is passing gas and also had a bowel movement this morning. I will start him on clear liquid diet today. We will advance as tolerated. Elevated lactic acid: Resolved Small cell carcinoma of left lung: Patient will follow up with Dr. Becker outpatient. I will inform him however that patient would like to see him during his inpatient stay. COPD: He does not appear to be in exacerbation at this time Fluids: I will stop IV fluids as patient is able to drink now. Electrolytes: Replete as needed Nutrition: Clear liquid diet today. Advance as tolerated. Activity: As tolerated DVT prophylaxis: Hold off for now as patient has rectal bleeding. Will place patient on SCDs for now. Attestations Medical Necessity Statement*: Anticipate inpatient stay for another 24 to 48 hours. Time Spent in Patient Care: 16 - 35 minutes (>than 50% of time spent in counselling and/or direct pt care on unit). 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
[2021-09-01] MEDS: ipratropium-albuterol 3 mL Neb INHALATION (09:24)
[2021-09-01] MEDS: HYDROcodone-acetaminophen 5-325 mg Tablet 1 TAB PO (13:47)
--- NOTE | 2021-09-01 14:04 | XRR_ITS ---
PROCEDURE INFORMATION: Exam: XR Abdomen Exam date and time: 09/01/2021 2:04 PM Age: 71 years old Clinical indication: Abdominal pain; Additional info: Follow up interval change TECHNIQUE: Imaging protocol: XR of the abdomen. Views: Frontal supine view of the abdomen. 1 View. COMPARISON: CR (ABDOMEN, ) 08/31/2021 2:32 PM FINDINGS: Gastrointestinal tract: There is gaseous distension of the large and small bowel similar to the prior study. Bones/joints: There are degenerative and postoperative changes in the lumbar spine. Mild lumbar levoscoliosis. Left total hip replacement stable from the prior study. XR/XR abdomen 1V* [id number] IMPRESSION: Gaseous distension of the large and small bowel appears similar to the prior study.
[2021-09-01 15:28] LABS: Basophils % 0.6 %; Hematocrit 32.5 % (42.0-52.0); Hemoglobin 10.9 g/dL (11.7-16.6); Lymphocytes # 0.3 10^3/uL (0.8-4.8); Lymphocytes % 17.3 %; Mean Corpuscular HGB Conc 33.5 g/dL (30.0-36.0); Mean Corpuscular Hemoglobin 30.4 pg (28.0-34.0); Mean Corpuscular Volume 90.5 fl (80-94); Mean Platelet Volume 10.3 fL (7.4-10.4); Monocytes # 0.1 10^3/uL (0.2-0.9); Neutrophils # 1.01 10^3/uL (1.8-7.7); Nucleated Red Blood Cells % 0 %; Platelet Count 41 10^3/cmm (130-400); Red Blood Count 3.59 10^6/uL (4.1-5.3); Red Cell Distribution Width 12.7 % (12.1-15.1); White Blood Count 1.6 10^3/uL (4.0-10.0)
[2021-09-01 15:41] LABS: Anion Gap 15.3 (5-19); Blood Urea Nitrogen 23 mg/dL (8-23); Carbon Dioxide 21 mmol/L (22-29); Chloride 99 mmol/L (98-107); Glomerular Filtration Rate 111.8 mL/min (90-130); Glucose 138 mg/dL (65-115); Osmolality Calculated 278 mOsm/kg (285-295); Potassium 4.3 mmol/L (3.5-5.1); Sodium 131 mmol/L (136-145)
[2021-09-01 15:44] LABS: Neutrophils % 73.1 %
--- NOTE | 2021-09-01 16:15 | PC.NURSE ---
END OF SHIFT SUMMARY PT HAS REQUESTED PAIN MED X1 - HAS BEEN AT SIDE THIS AFTERNOON - [address] - HAD X2 SMALL BLOODY STOOLS - DR JACK - VOIDING WITHOUT DIFFICULTY - NO FURTHER NEEDS VOICED
--- NOTE | 2021-09-01 21:11 | PC.NURSE ---
During rounds pt stating I'm not feeling right and I need to take my home medication . C/o chest pain. V/S stable. Reported this happens when I don't take my meds . Attempted to contact Dr. Sinha x3 no answer. Pt called this RN d/t pt calling her anxiously and reporting not receiving his home medication.
[2021-09-02] MEDS: piperacillin-tazobactam 3.375 GM in sodium chloride 0.9% (plus) 50 ML IV (02:00)
[2021-09-02] MEDS: sodium chloride 0.9% 1,000 ML 100 ML IV (02:52)
[2021-09-02 04:00] VITALS: BP 134/86; PULSE 102; RESP 18; TEMP 36.8; O2SAT 96
--- NOTE | 2021-09-02 04:24 | PC.NURSE ---
i reported high pulse 102 to nurse
[2021-09-02 05:41] LABS: Hematocrit 32.1 % (42.0-52.0); Hemoglobin 10.8 g/dL (11.7-16.6); Lymphocytes # 0.4 10^3/uL (0.8-4.8); Lymphocytes % 31.5 %; Mean Corpuscular HGB Conc 33.6 g/dL (30.0-36.0); Mean Corpuscular Hemoglobin 30.5 pg (28.0-34.0); Mean Corpuscular Volume 90.7 fl (80-94); Mean Platelet Volume 10.3 fL (7.4-10.4); Monocytes # 0.2 10^3/uL (0.2-0.9); Monocytes % 12.1 %; Neutrophils % 53.2 %; Nucleated Red Blood Cells % 0 %; Platelet Count 36 10^3/cmm (130-400); Red Blood Count 3.54 10^6/uL (4.1-5.3); White Blood Count 1.2 10^3/uL (4.0-10.0)
[2021-09-02 06:08] LABS: Alanine Aminotransferase 6 U/L (0-41); Albumin Level 2.7 g/dL (3.5-5.2); Alkaline Phosphatase 51 IU/L (40-130); Anion Gap 12.5 (5-19); Aspartate Amino Transferase 9 U/L (0-40); Blood Urea Nitrogen 22 mg/dL (8-23); Calcium 8.2 mg/dL (8.5-10.5); Carbon Dioxide 23 mmol/L (22-29); Chloride 104 mmol/L (98-107); Globulin 2.6 g/dL (1.3-4.6); Glomerular Filtration Rate 133.6 mL/min (90-130); Glucose 105 mg/dL (65-115); Magnesium 2.3 mg/dL (1.7-2.3); Osmolality Calculated 284 mOsm/kg (285-295); Potassium 4.5 mmol/L (3.5-5.1); Sodium 135 mmol/L (136-145); Total Bilirubin 0.6 mg/dL (0.15-1.2); Total Protein 5.3 g/dL (6.6-8.7)
[2021-09-02 06:40] LABS: Neutrophils # 0.66 10^3/uL (1.8-7.7); Slide Review Slide Review Perform
[2021-09-02] MEDS: HYDROcodone-acetaminophen 5-325 mg Tablet 1 TAB PO (07:34)
[2021-09-02] MEDS: pantoprazole DR 40 mg Tablet PO (07:34)
[2021-09-02 07:50] VITALS: PULSE 71; RESP 18; O2SAT 96
[2021-09-02 08:00] VITALS: BP 154/102; PULSE 102; RESP 17; TEMP 36.9; O2SAT 91
[2021-09-02 11:50] VITALS: BP 112/76; PULSE 89; RESP 17; TEMP 36.4; O2SAT 98
--- NOTE | 2021-09-02 12:15 | PM.DCS ---
Discharge Providers Date of Admission: 08/30/21 18:51 Date of Discharge: September 02, 2021 Attending Provider at Admission: Chloe Sinha Attending Provider at Discharge: Jennifer Luther MD Primary Care Provider: Thelma Mccall MD Diagnoses at Discharge Discharge Diagnosis (1) Intractable abdominal pain: Status: Acute (2) Small cell carcinoma: Status: Acute (3) UTI (urinary tract infection): Status: Acute (4) Atrial fibrillation: Status: Acute Qualifiers: Atrial fibrillation type: unspecified Qualified Code(s): I48.91 - Unspecified atrial fibrillation (5) Hypertension: Status: Acute (6) COPD (chronic obstructive pulmonary disease): Status: Acute Reason for Visit Reason for Visit: abd pain N/V/D Hospital Course Hospital Course This is a 71-year-old man with diagnosis of 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 He does carry history of COPD, paroxysmal A. fib, neuropathy of lower extremities, degenerative disease of spine. Patient's diarrhea was deemed secondary to colitis which improved with use of steroids. His urine culture did grow Proteus mirabilis, CT abdomen pelvis at the time of admission showed colitis of transverse colon through mid descending colon with liver metastases. Dr. Taylor did speak with the patient at length on Thursday. On Thursday patient refused placement of Mediport and decided against chemo therapy. His diarrhea improved. He will be discharged on prednisone 20 mg twice a day regimen along with Lomotil. MRSA nares, blood cultures, urine antigens, were unremarkable. He did develop pancytopenia for which he required 1 dose of Neupogen 480mcg on 09/02. Dr. Taylor would like to see him on 09/03 and discuss hospice care and give second dose of Neupogen. Patient will be discharged on Levaquin with appointment to see Dr. Taylor tomorrow. Dr. Arteaga was notified that patient has decided against placement of Mediport. Physical Exam Narrative: EXAM NARRATIVE: No audible stridor or wheezing Diminished breath sounds at the base of the lung bilaterally Awake alert 20x3 GCS 15 Venous stasis dermatitis Patient was saturating well on room air S1, S2 Central sternal scar with good granulation tissue without active sign of cellulitis Discharge Data Data Completed and Pending: Completed Studies During Hospitalization Category Date Time Status CT abdomen pelvis w con* [id number] Urge nt Cat Scan 08/30/21 03:17 Completed XR abdomen 1V* 74 018 Routine Exams 08/31/21 13:30 Completed XR abdomen 1V* 74 018 Urgent Exams 09/01/21 14:04 Completed XR acute abdomen series [id number] Stat Exams 08/30/21 13:03 Completed Pending at discharge Category Date Time Status Blood Culture Sta t Lab 08/30/21 06:36 Results Clostridioides Di fficile PCR Stat Lab 08/30/21 10:11 Uncollected Enteric Bacterial Panel by PCR Stat Lab 08/30/21 10:11 Uncollected Sputum Culture an d Gram Stain Stat Lab 08/30/21 10:11 Uncollected Labs from last 24 hours 09/02/21 09/02/21 09/01/21 05:12 05:12 15:06 WBC 1.2 L RBC 3.54 L Hgb 10.8 L Hct 32.1 L MCV 90.7 MCH 30.5 MCHC 33.6 RDW 13.0 Plt Count 36 L MPV 10.3 Neut % (Auto) 53.2 Lymph % (Auto) 31.5 [place] % (Auto) 12.1 Eos % (Auto) 0.0 Baso % (Auto) 0.0 Neut # (Auto) 0.66 L* Lymph # (Auto) 0.4 L [place] # (Auto) 0.2 Eos # (Auto) 0.0 Baso # (Auto) 0.0 Nucleated RBC % (a uto) 0 Nucleated RBCs # 0.0 Sodium 135 L 131 L Potassium 4.5 4.3 Chloride 104 99 Carbon Dioxide 23 21 L Anion Gap 12.5 15.3 BUN 22 23 Creatinine 0.6 L 0.7 GFR Calculation 133.6 H 111.8 Glucose 105 138 H Calculated Osmolal ity 284 L 278 L Calcium 8.2 L 8.0 L Magnesium 2.3 Total Bilirubin 0.6 AST 9 ALT 6 Alkaline Phosphata se 51 Total Protein 5.3 L Albumin 2.7 L Globulin 2.6 09/01/21 15:06 WBC 1.6 L RBC 3.59 L Hgb 10.9 L Hct 32.5 L MCV 90.5 MCH 30.4 MCHC 33.5 RDW 12.7 Plt Count 41 L MPV 10.3 Neut % (Auto) 73.1 Lymph % (Auto) 17.3 [place] % (Auto) 9.0 Eos % (Auto) 0.0 Baso % (Auto) 0.6 Neut # (Auto) 1.01 L Lymph # (Auto) 0.3 L [place] # (Auto) 0.1 L Eos # (Auto) 0.0 Baso # (Auto) 0.0 Nucleated RBC % (a uto) 0 Nucleated RBCs # 0.0 Sodium Potassium Chloride Carbon Dioxide Anion Gap BUN Creatinine GFR Calculation Glucose Calculated Osmolal ity Calcium Magnesium Total Bilirubin AST ALT Alkaline Phosphata se Total Protein Albumin Globulin Vitals: Last Vital Signs Temp 97.5 F L 09/02/21 11:50 Pulse 89 09/02/21 11:50 Resp 17 09/02/21 11:50 BP 112/76 09/02/21 11:50 Pulse Ox 98 09/02/21 11:50 Discharge Plan Discharge Patient Disposition: Home Condition: Stable Prescriptions: New prednisone 20 mg tablet 20 mg PO BID 3 Days Qty: 6 RF: 0 levofloxacin 750 mg tablet 750 mg PO DAILY 7 Days Qty: 7 RF: 0 Continued omeprazole 40 mg capsule,delayed release(DR/EC) 40 mg PO DAILY Qty: 30 RF: 0 dexamethasone 4 mg tablet 4 mg PO BID RF: 0 Anoro Ellipta 62.5-25 mcg/actuation blister with device 1 inh inhalation DAILY 30 Days Qty: 60 RF: 3 fluticasone propionate 50 mcg/actuation Onset,Suspension 1 - 2 spray INTRANASAL DAILY PRN (Reason: Allergy Symptoms) RF: 0 PreserVision AREDS-2 250-90-40-1 mg Capsule 1 cap PO QPM RF: 0 albuterol sulfate [Ventolin HFA] 90 mcg/actuation HFA aerosol inhaler 2 inh INHALATION QID PRN (Reason: shortness of breath or wheezing) RF: 0 propafenone [Rythmol SR] 225 mg capsule,extended release 12 hr 225 mg PO Q12H RF: 0 hydrocodone-acetaminophen 5-325 mg tablet 1 tab PO Q6H PRN (Reason: pain) Qty: 16 RF: 0 trazodone 50 mg tablet 50 mg PO BEDTIME RF: 0 prochlorperazine maleate 10 mg tablet 10 mg PO Q4H PRN (Reason: Nausea And Vomiting) RF: 0 Pepcid AC 20 mg Tablet 20 mg PO DAILY RF: 0 alum-mag hydroxide-simeth 200-200-20 mg/5 mL Suspension See Rx Instructions .ROUTE .COMPLEX RF: 0 Claritin 10 mg Tablet 10 mg PO DAILY PRN (Reason: Allergy Symptoms) RF: 0 Held Eliquis 5 mg tablet 2.5 mg PO BID RF: 0 Hold Instructions: Resume on 09/04/21. Discharge Orders: Discharge Order (Routine); Ordered 09/02/21 Ordered By: Jennifer Luther Referrals: Jong Taylor MD [Hospitalist] - 09/03/21 1:00 pm (PLZ make an appt sae [facility] FOR NEUPOGEN and hospice commuication) Thelma Mccall MD [Primary Care Provider] - 09/10/21 9:00 am Discharge Diet: GI Soft Discharge Activity: Increase activity as tolerated Patient Instructions: Prednisone (By mouth), Levofloxacin (By mouth), Colitis (ED), Opioid Safety Discharge Attestations Time Spent in Discharge Care*: less than 30 min Status at Discharge: Cognitive status at discharge: cognitively intact, Behavioral status at discharge: cooperative, Quality Metrics Clinical Quality Measures During this hospital stay, did patient experience: None Coding Level of Care Code Acute Chg FW DC note Diagnoses Intractable abdominal pain R10.9 Small cell carcinoma C80.1 UTI (urinary tract infection) N39.0 Atrial fibrillation I48.91 Atrial fibrillation type: unspecified Hypertension I10 COPD (chronic obstructive pulmonary disease) J44.9
[2021-09-02 14:27] VITALS: BP 112/76; PULSE 89; RESP 17; TEMP 36.4; O2SAT 98
--- NOTE | 2021-09-04 08:45 | PC.SOCIAL ---
discharge follow up call made, spoke with patient. patient reports he continues to not feel well. denies pain or vomiting. continues to have nausea, has zofran which gives him some relief. patient reports no appetite, discussed the importance of fluids to keep from getting dehydrated. patient verbalizes understanding. patient received new medications from the pharmacy and he is taking as directed. patient had held Eliquis until today and he will resume at 2.5 mg bid. patient is aware of follow up appointment with pcp. patient saw dr. mcgarry yesterday for follow up. patient denies any needs at this time from nurse or questions
--- NOTE | 2021-09-04 18:43 | PM.CONSULT ---
Providers/Reason For Consult Attending Physician: Jennifer Luther MD Primary Care Provider: Thelma Mccall MD History of Present Illness History of Present Illness Charlie Moulton is a 71 year old male Review of Systems General: Reports: 10 or more systems reviewed and unremarkable except in HPI and below Narrative: Constitutional: No fever, no chills. HEENT: No vision changes CV: No chest pain, no palpitations PULM: no cough, no dyspnea. GI: +RLQ abdominal pain, +N/+V/D. : +dysuria MSKEL: No muscle pain SKIN: No new rashes, no lesions. NEURO: No headache, no focal weakness. HEME: No visible bruises PSYCH: Normal mood Meds/Allergies Home Medications and Allergies Home Medications Medication Instructions Recorded Confirmed Last Taken Type PreserVision AREDS-2 1 cap PO QPM 03/01/21 08/30/21 08/08/21 History albuterol sulfate [Ventolin HFA] 2 inh INHALATION QID PRN 03/01/21 08/30/21 07/31/21 History fluticasone propionate 1 - 2 spray INTRANASAL DAILY PRN 03/01/21 08/30/21 07/31/21 History umeclidinium 62.5 mcg-vilanterol 1 inh INHALATION DAILY 30 Days #60 06/20/21 08/30/21 08/08/21 Rx 25 mcg/actuation powdr for ea inhalation Eliquis 2.5 mg PO BID 07/19/21 08/30/21 08/03/21 History propafenone [Rythmol SR] 225 mg PO Q12H 07/19/21 08/30/21 08/09/21 History hydrocodone-acetaminophen 1 tab PO Q6H PRN #16 tab 08/09/21 08/30/21 Unknown Rx omeprazole 40 mg capsule,delayed 40 mg PO DAILY #30 cap 08/13/21 08/30/21 Unknown Rx release dexamethasone 4 mg tablet 4 mg PO BID 08/21/21 08/30/21 Unknown History Claritin 10 mg PO DAILY PRN 08/30/21 08/30/21 Unknown History Pepcid AC 20 mg PO DAILY 08/30/21 08/30/21 Unknown History alum-mag hydroxide-simeth See Rx Instructions .ROUTE .COMPLEX 08/30/21 08/30/21 Unknown History prochlorperazine maleate 10 mg PO Q4H PRN 08/30/21 08/30/21 Unknown History trazodone 50 mg PO BEDTIME 08/30/21 08/30/21 Unknown History levofloxacin 750 mg PO DAILY 7 Days #7 tab 09/02/21 Unknown Rx prednisone 20 mg PO BID 3 Days #6 tab 09/02/21 Unknown Rx Allergies Allergy/AdvReac Type Severity Reaction Status Date / Time No Known Allergies Allergy Verified 08/30/21 10:32 PFSH Acute PFSH: Medical History (Updated 09/04/21 @ 18:45 by Dorene Flowers MD) Arthritis Atrial fibrillation COPD (chronic obstructive pulmonary disease) COVID-19 Hypertension Neuropathy Paroxysmal A-fib Small cell carcinoma Small cell carcinoma of left lung Tobacco abuse Unstable angina Surgical History H/O neck surgery History of hip surgery Previous back surgery Social History Quit status (tobacco): has quit using tobacco Year quit tobacco: April 30, 2021 Former quit date comment: Hx of 1 PPD x 50 Years Second hand smoke exposure: No Smoking risk assessment/counseling performed?: No Alcohol intake: former Desire information about alcohol rehabilitation?: No Counseling given: No Desire information about substance/drug rehabilitation?: No Counseling given: No Lives independently: Yes Household members: spouse Housing: House Marital status: Highest education level completed: High School Graduate service: No Current occupational status: retired Pets and animals: Yes History of recent travel: No Current gender identity: Male Dietary Habits: Current diet type/program: regular Caffeine: Yes Vitals/I&O/Wt Last Vital Signs Temp 97.5 F L 09/02/21 14:27 Pulse 89 09/02/21 14:27 Resp 17 09/02/21 14:27 BP 112/76 09/02/21 14:27 Pulse Ox 98 09/02/21 14:27 Data Micro: Micro: Microbiology 08/30/21 06:30 Blood Culture - Fi nal Blood NO GROWTH AFTER 5 DAYS A&P Assessment and plan (1) Colitis: Status: Acute (2) Small cell carcinoma of left lung: Status: Acute Coding Level of Care Code Acute 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
== END 2021-09-02 14:29 | disposition home or self-care (01) | DRG 690 ==
LOC: ER 04:46 → MEDSURG 05:03
PROVIDERS: Internal Medicine; Admitting Provider Hospitalist; Emergency Provider Emergency Medicine; PCP Family Medicine; Visit Provider Internal Medicine
DX: N39.0 Urinary tract infection, site not specified (principal); K52.1 Toxic gastroenteritis and colitis; C78.7 Secondary malignant neoplasm of liver and intrahepatic bile duct; C79.51 Secondary malignant neoplasm of bone; C34.92 Malignant neoplasm of unspecified part of left bronchus or lung; J96.11 Chronic respiratory failure with hypoxia; D61.818 Other pancytopenia; Z51.5 Encounter for palliative care; J44.9 Chronic obstructive pulmonary disease, unspecified; Z79.01 Long term (current) use of anticoagulants; I48.0 Paroxysmal atrial fibrillation; G62.9 Polyneuropathy, unspecified; M47.9 Spondylosis, unspecified; I10 Essential (primary) hypertension; B96.4 Proteus (mirabilis) (morganii) as the cause of diseases classified elsewhere; T45.1X5A Adverse effect of antineoplastic and immunosuppressive drugs, initial encounter; Z66 Do not resuscitate; Z20.822 Contact with and (suspected) exposure to COVID-19; Z87.891 Personal history of nicotine dependence
CPT/HCPCS: 36415; 36600; 70553; 74018; 74022; 74177; 80048; 80051; 80053; 81001; 82330; 82805; 83605; 83690; 83735; 84100; 85025; 86403; 87040; 87077; 87086; 87186; 87449; 87635; 87641; 94640; 94664; 96361; 96365; 96372; 96374; 96375; 96376; 97116; 97162; 97530; 99215; 99285; G0378; J0696; J1170; J1442; J2270; J2405; J2543; J2920; J2930; J7030; J7040; Q9967; S0030

== ENCOUNTER 2021-09-04 09:45 | Outpatient (RCR) | payer MEDICARE, OTHER, MEDICAID, SELFPAY ==
[2021-09-03] MEDS: loratadine 10 mg Tablet PO (13:30)
[2021-09-04 10:41] LABS: Eosinophils % 0.1 %; Hematocrit 37.3 % (42.0-52.0); Hemoglobin 12.2 g/dL (11.7-16.6); Lymphocytes # 1.9 10^3/uL (0.8-4.8); Lymphocytes % 12.3 %; Mean Corpuscular HGB Conc 32.7 g/dL (30.0-36.0); Mean Corpuscular Hemoglobin 31.1 pg (28.0-34.0); Mean Corpuscular Volume 95.2 fl (80-94); Mean Platelet Volume 11.4 fL (7.4-10.4); Monocytes # 0.9 10^3/uL (0.2-0.9); Monocytes % 5.5 %; Neutrophils % 79.6 %; Nucleated Red Blood Cells % 0.1 %; Platelet Count 62 10^3/cmm (130-400); Red Blood Count 3.92 10^6/uL (4.1-5.3); White Blood Count 15.6 10^3/uL (4.0-10.0)
[2021-09-04 11:16] LABS: Slide Review Slide Review Perform
== END 2021-09-29 23:59 | disposition home or self-care (01) ==
LOC: ONCMED 09:45
PROVIDERS: Internal Medicine Hematology & Oncology; PCP Family Medicine; Visit Provider Internal Medicine Medical Oncology
DX: C34.12 Malignant neoplasm of upper lobe, left bronchus or lung (principal); C79.51 Secondary malignant neoplasm of bone; C78.7 Secondary malignant neoplasm of liver and intrahepatic bile duct; R53.1 Weakness; Z79.899 Other long term (current) drug therapy
CPT/HCPCS: 36415; 85025; 96372; Q5101